=== PATIENT | female | born 1950 | race Caucasian/White ===

== ENCOUNTER 2017-08-06 14:12 | Inpatient (IN) | payer MEDICARE ==
[~2017-08-06] VITALS: Ht 177.8 cm; Wt 95.7 kg
[2017-08-06] VITALS (9 sets, daily range): BP systolic 110–184; BP diastolic 68–87; PULSE 71–85; RESP 17–20; TEMP 98–99.3; O2SAT 95–99
[~2017-08-06 14:12] MED LIST: LEVO25TA4 PO; LISI40TA PO; MOBI15TA PO
[2017-08-06] MEDS ORDERED: ACETAMINOPHEN 325 MG TAB PO ONE (14:30)
[2017-08-06] MEDS ORDERED: SODIUM CHLORID 0.9% 500 ML INJ 500 ML IV ONE (14:30)
[2017-08-06] MEDS ORDERED: SODIUM CHLORIDE 0.9% FLUSH 10 ML FLUSH IVF PRN (14:30)
[2017-08-06 15:04] LABS: AUTOMATED NEUTROPHIL # 3.1 TH/MM3 (1.8-7.7); BASOPHIL # 0.1 TH/MM3 (0-0.2); BASOPHIL % 1.2 % (0.0-2.0); EOSINOPHIL # 0.2 TH/MM3 (0-0.4); EOSINOPHIL % 3.8 % (0.0-4.0); HEMOGLOBIN 12.8 GM/DL (11.6-15.3); LYMPH % 33.1 % (9.0-44.0); LYMPHOCYTE # 1.9 TH/MM3 (1.0-4.8); MEAN CELL VOLUME 88.6 FL (80.0-100.0); MEAN CORPUSCULAR HEMOGLOBIN 29.9 PG (27.0-34.0); MEAN CORPUSCULAR HGB CONC 33.7 % (32.0-36.0); MEAN PLATELET VOLUME 8.9 FL (7.0-11.0); MONOCYTE # 0.5 TH/MM3 (0-0.9); NEUT % 52.9 % (16.0-70.0); PLATELET COUNT 227 TH/MM3 (150-450); RED BLOOD COUNT 4.29 MIL/MM3 (4.00-5.30); RED CELL DISTRIBUTION WIDTH 14.3 % (11.6-17.2); WHITE BLOOD COUNT 5.9 TH/MM3 (4.0-11.0)
[2017-08-06 15:21] LABS: ALBUMIN 3.5 GM/DL (3.4-5.0); ALT (GPT) 36 U/L (10-53); AST (GOT) 28 U/L (15-37); BICARBONATE 29.6 MEQ/L (21.0-32.0); BLOOD UREA NITROGEN 18 MG/DL (7-18); CALCIUM 8.4 MG/DL (8.5-10.1); CHLORIDE 104 MEQ/L (98-107); CREATININE 0.69 MG/DL (0.50-1.00); GLOMERULAR FILTRATION RATE 85 ML/MIN (>89); GLUCOSE,RANDOM 98 MG/DL (74-106); SODIUM (NA) 139 MEQ/L (136-145)
[2017-08-06 15:25] LABS: ALKALINE PHOSPHATASE 74 U/L (45-117); TOTAL BILIRUBIN ADULT 0.4 MG/DL (0.2-1.0); TROPONIN I LESS THAN 0.02 NG/ML (0.02-0.05)
[2017-08-06 15:28] LABS: INTERNATIONAL NORMALIZED RATIO 1.1 RATIO; PROTHROMBIN TIME - PATIENT 10.9 SEC (9.8-11.6)
--- NOTE | 2017-08-06 15:28 | RADRPT ---
EXAM DATE/TIME: 08/06/2017 14:56 CORRECTION Corrected on: August 06, 2017; [facility] COMPARISON: No previous studies available for comparison. INDICATIONS : Patient fell and complains of pelvic pain. MEDICAL HISTORY : None. SURGICAL HISTORY : Bilateral hip arthroplasty. ENCOUNTER: Initial ACUITY: 1 day PAIN SCORE: 5/10 LOCATION: pelvis FINDINGS: A single frontal view of the pelvis demonstrates no evidence of fracture. The bony pelvic ring is in tact. Bilateral hip prosthetic devices are in place. No joint dislocation. There is good alignment of the SI joints and pubic symphysis. CONCLUSION: No acute fracture or joint dislocation involving the pelvis. Jean-Claude Pineda MD on August 06, 2017 at 15:26 Board Certified Radiologist. This report was verified electronically. Jean-Claude Pineda MD on August 06, 2017 at 15:29 Board Certified Radiologist. This report was verified electronically.
--- NOTE | 2017-08-06 15:29 | RADRPT ---
EXAM DATE/TIME: 08/06/2017 14:59 [facility] COMPARISON: PELVIS AP ONLY, August 06, 2017, 14:56. INDICATIONS : Patient fell and complains of left hip pain. MEDICAL HISTORY : None. SURGICAL HISTORY : Left hip arthroplasty. Left knee arthroplasty. ENCOUNTER: Initial ACUITY: 1 day PAIN SCORE: 10/10 LOCATION: Left Femur FINDINGS: There is a fracture involving the proximal shaft of the left femur. The left hip prosthesis remains i ntact and in good position. The bony structures of the pelvis are grossly intact. CONCLUSION: Oblique fracture through the proximal shaft of the left femur. Jean-lCaude Pineda MD on August 06, 2017 at 15:27 Board Certified Radiologist. This report was verified electronically.
--- NOTE | 2017-08-06 15:36 | RADRPT ---
EXAM DATE/TIME: 08/06/2017 15:03 [facility] COMPARISON: No previous studies available for comparison. INDICATIONS : Evaluate for pneumonia, pneumothorax, or communicable diseases. MEDICAL HISTORY : None. SURGICAL HISTORY : None. ENCOUNTER: Initial ACUITY: 1 day PAIN SCORE: 0/10 LOCATION: chest FINDINGS: A single view of the chest demonstrates the lungs to be symmetrically aerated without evidence of mas s, infiltrate or effusion. The cardiomediastinal contours are unremarkable. Osseous structures are intact. Right shoulder prosthesis in place. Degenerative changes of the thoracic spine. CONCLUSION: No acute disease. Jean-Claude Pineda MD on August 06, 2017 at 15:33 Board Certified Radiologist. This report was verified electronically.
--- NOTE | 2017-08-06 15:39 | RADRPT ---
EXAM DATE/TIME: 08/06/2017 15:23 [facility] COMPARISON: No previous studies available for comparison. INDICATIONS : Syncopal episode with fall. Head and neck pain. RADIATION DOSE: 56.35 CTDIvol (mGy) MEDICAL HISTORY : Hypertension. SURGICAL HISTORY : Hysterectomy. ENCOUNTER: Initial ACUITY: 1 day PAIN SCALE: 3/10 LOCATION: Bilateral cranial TECHNIQUE: Multiple contiguous axial images were obtained of the head. Using automated exposure control and adj ustment of the mA and/or kV according to patient size, radiation dose was kept as low as reasonably a chievable to obtain optimal diagnostic quality images. DICOM format image data is available electro nically for review and comparison. FINDINGS: CEREBRUM: The ventricles are normal for age. No evidence of midline shift, mass lesion, hemorrhage or acute in farction. No extra-axial fluid collections are seen. POSTERIOR FOSSA: The cerebellum and brainstem are intact. The 4th ventricle is midline. The cerebellopontine angle i s unremarkable. EXTRACRANIAL: The visualized portion of the orbits is intact. SKULL: The calvaria is intact. No evidence of skull fracture. CONCLUSION: Normal examination for a patient of this age. Jean-Claude Pineda MD on August 06, 2017 at 15:36 Board Certified Radiologist. This report was verified electronically.
--- NOTE | 2017-08-06 15:52 | RADRPT ---
EXAM DATE/TIME: 08/06/2017 15:23 [facility] COMPARISON: No previous studies available for comparison. INDICATIONS : Syncopal episode with fall. Head and neck pain. RADIATION DOSE: 35.24 CTDIvol (mGy) MEDICAL HISTORY : Hypertension. SURGICAL HISTORY : Hysterectomy. ENCOUNTER: Initial ACUITY: 1 day PAIN SCALE: 3/10 LOCATION: Bilateral neck TECHNIQUE: Volumetric scanning of the cervical spine was performed. Multiplanar reconstructions in the sagittal, coronal and oblique axial planes were performed. Using automated exposure control and adjustment o f the mA and/or kV according to patient size, radiation dose was kept as low as reasonably achievable to obtain optimal diagnostic quality images. DICOM format image data is available electronically f or review and comparison. FINDINGS: VERTEBRAE: Normal vertebral body height. There is moderate primary degenerative changes involving the mid to low er cervical spine at C4-5, C5-6 and C6-7. There is disc space narrowing at these levels. No acute bon y fracture is demonstrated. ALIGNMENT: No evidence of subluxation. C2-C3: The bony spinal canal is normal in size. No evidence of disc bulge or herniation. The neural forami na are bilaterally patent. Bilateral facet arthritis. C3-C4: The bony spinal canal is normal in size. No evidence of disc bulge or herniation. The neural forami na are bilaterally patent. Bilateral facet arthritis. C4-C5: The bony spinal canal is normal in size. No evidence of disc bulge or herniation. The neural forami na are bilaterally patent. Bilateral facet arthritis. C5-C6: Broad-based bulging with disc osteophyte complex.. The neural foramina are bilaterally patent. Bilat eral facet arthritis. C6-C7: Focal central bulge with disc osteophyte complex. The neural foramina are patent bilaterally. Bilater al facet arthritis. C7-T1: The bony spinal canal is normal in size. No evidence of disc bulge or herniation. The neural forami na are bilaterally patent. CONCLUSION: 1. No acute bony fracture. 2. Primary degenerative changes, disc degeneration disc space narrowing from C4-C7. 3. Bilateral facet arthritis at multiple levels. Jean-Claude Pineda MD on August 06, 2017 at 15:47 Board Certified Radiologist. This report was verified electronically.
[2017-08-06] MEDS ORDERED: CYAN1TAB24 (16:00)
[2017-08-06] MEDS ORDERED: LISI-515 PO (16:00)
[2017-08-06] MEDS ORDERED: MULT1TAB46 (16:00)
[2017-08-06] MEDS ORDERED: BIOTCAP PO (16:00)
[2017-08-06] MEDS ORDERED: CALC1TAB42 PO (16:00)
--- NOTE | 2017-08-06 16:27 | PD ---
HPI Chief Complaint: Syncope/Near-Syncope Time Seen by Provider: 14:15 Travel History International Travel<30 days: No Contact w/Intl Traveler<30days: No Traveled to known affect area: No History of Present Illness HPI Patient is a 66-year-old female history of gastric bypass surgery a little over a year ago, who comes in after a syncopal episode today. She says she was feeling fine, she was entertaining some friends today and she says she was standing up she suddenly got dizzy and passed out. She says the entire event came on very quickly, and this has never happened to her before. She says she never had any chest pain. She says she was see feeling in her normal state of health prior to this event. She denies any shortness of breath, fever, chills. Currently she is complaining of severe left leg pain. She refused any morphine from EMS on the way here. Any movement makes the pain worse. Severity is moderate. PFSH Past Medical History Cancer: No Cardiovascular Problems: No Diabetes: No Patient Takes Glucophage: No Endocrine: No Gastrointestinal Disorders: Yes (GASTRIC BYPASS ) Genitourinary: No Hepatitis: No Hiatal Hernia: No Hypertension: Yes Immune Disorder: No Medical other: Yes (CHOLESTEROL) Musculoskeletal: No Neurologic: No Psychiatric: No Reproductive: No Respiratory: Yes (SLEEP APNEA) Thyroid Disease: Yes ?: Not Past Surgical History AICD: No Gynecologic Surgery: Yes (HYSTERECTOMY) Joint Replacement: Yes (BILATERAL HIPS AND KNEES; RIGHT SHOULDER) Pacemaker: No Other Surgery: Yes Social History Alcohol Use: No Tobacco Use: No Substance Use: No Allergies-Medications (Allergen,Severity, Reaction): Coded Allergies: Sulfa (Sulfonamide Antibiotics) (Unverified Allergy, Mild, Rash, 01/25/17) penicillin G (Unverified Allergy, Mild, Rash, 01/25/17) Reported Meds & Prescriptions Reported Meds & Active Scripts Active Reported Calcium 500+D (Calcium Carbonate-Cholecalciferol) 500-200 Mg-Unit Tab 1 Tab PO BID Biotin 5 Mg Cap 5 Mg PO Multi Vitamin Daily (Multiple Vitamin) 1 Tab Tab BID B12 (Cyanocobalamin) 1,000 Mcg Tab Lisinopril 20 Mg Tab 20 Mg PO DAILY Mobic (Meloxicam) 15 Mg Tab 15 Mg PO DAILY Levothyroxine (Levothyroxine Sodium) 25 Mcg Tab 25 Mcg PO DAILY Review of Systems Except as stated in HPI: all other systems reviewed are Neg General / Constitutional: No: Fever, Chills Eyes: No: Blurred Vision HENT: Positive: Lightheadedness, No: Headaches Cardiovascular: No: Chest Pain or Discomfort Respiratory: No: Shortness of Breath Gastrointestinal: No: Nausea, Vomiting Musculoskeletal: Positive: Limited ROM, Pain Skin: No Rash, No Change in Pigmentation Neurologic: Positive: Dizziness Physical Exam Narrative GENERAL: Awake and alert, no acute distress. SKIN: Focused skin assessment warm/dry. No wounds or signs of infection. HEAD: Atraumatic. Normocephalic. EYES: Pupils equal and round. No scleral icterus. Extraocular movements intact. ENT: Mucous membranes pink and moist. NECK: Trachea midline. No JVD. CARDIOVASCULAR: Regular rate and rhythm. No murmur appreciated. RESPIRATORY: No accessory muscle use. Clear to auscultation. Breath sounds equal bilaterally. GASTROINTESTINAL: Abdomen soft, non-tender, nondistended. MUSCULOSKELETAL: Deformity and swelling of the left thigh. Unable to move the left leg due to pain. No tenderness to the pelvis, knee, lower leg. Pedal pulses intact. NEUROLOGICAL: Awake and alert. No obvious cranial nerve deficits. Motor grossly within normal limits. Normal speech. PSYCHIATRIC: Appropriate mood and affect; insight and judgment normal. Data Data Last Documented VS Vital Signs Date Time Temp Pulse Resp B/P (MAP) Pulse Ox O2 Delivery O2 Flow Rate FiO2 08/06/17 15:41 74 148/85 (106) 97 Room Air 08/06/17 14:18 20 08/06/17 14:15 98.0 Orders Orders Complete Blood Count With Diff (08/06/17 14:23) Comprehensive Metabolic Panel (08/06/17 14:23) Ckmb (Isoenzyme) Profile (08/06/17 14:23) Troponin I (08/06/17 14:23) Act Partial Throm Time (Ptt) (08/06/17 14:23) Prothrombin Time / Inr (Pt) (08/06/17 14:23) Urinalysis - C+S If Indicated (08/06/17 14:23) Chest, Single Ap (08/06/17 14:23) Ct Brain W/O Iv Contrast(Rout) (08/06/17 14:23) Ct Cerv Spine W/O Contrast (08/06/17 14:23) Ecg Monitoring (08/06/17 14:23) Iv Access Insert/Monitor (08/06/17 14:23) Oximetry (08/06/17 14:23) Sodium Chloride 0.9% Flush (Ns Flush) (08/06/17 14:30) Pelvis, Ap Only (Routine) (08/06/17 ) Femur (Ap & Lat/2vws) (08/06/17 ) Acetaminophen (Tylenol) (08/06/17 14:30) Sodium Chlorid 0.9% 500 Ml Inj (Ns 500 M (08/06/17 14:30) Electrocardiogram (08/06/17 ) Morphine Inj (Morphine Inj) (08/06/17 16:30) Labs Laboratory Tests Test 08/06/17 14:35 White Blood Count 5.9 TH/MM3 Red Blood Count 4.29 MIL/MM3 Hemoglobin 12.8 GM/DL Hematocrit 38.0 % Mean Corpuscular Volume 88.6 FL Mean Corpuscular Hemoglobin 29.9 PG Mean Corpuscular Hemoglobin Concent 33.7 % Red Cell Distribution Width 14.3 % Platelet Count 227 TH/MM3 Mean Platelet Volume 8.9 FL Neutrophils (%) (Auto) 52.9 % Lymphocytes (%) (Auto) 33.1 % Monocytes (%) (Auto) 9.0 % Eosinophils (%) (Auto) 3.8 % Basophils (%) (Auto) 1.2 % Neutrophils # (Auto) 3.1 TH/MM3 Lymphocytes # (Auto) 1.9 TH/MM3 Monocytes # (Auto) 0.5 TH/MM3 Eosinophils # (Auto) 0.2 TH/MM3 Basophils # (Auto) 0.1 TH/MM3 CBC Comment DIFF FINAL Differential Comment Prothrombin Time 10.9 SEC Prothromb Time International Ratio 1.1 RATIO Activated Partial Thromboplast Time 24.5 SEC Blood Urea Nitrogen 18 MG/DL Creatinine 0.69 MG/DL Random Glucose 98 MG/DL Total Protein 7.0 GM/DL Albumin 3.5 GM/DL Calcium Level 8.4 MG/DL Alkaline Phosphatase 74 U/L Aspartate Amino Transf (AST/SGOT) 28 U/L Alanine Aminotransferase (ALT/SGPT) 36 U/L Total Bilirubin 0.4 MG/DL Sodium Level 139 MEQ/L Potassium Level 3.6 MEQ/L Chloride Level 104 MEQ/L Carbon Dioxide Level 29.6 MEQ/L Anion Gap 5 MEQ/L Estimat Glomerular Filtration Rate 85 ML/MIN Total Creatine Kinase 97 U/L Troponin I LESS THAN 0.02 NG/ML MDM Medical Decision Making Medical Screen Exam Complete: Yes Emergency Medical Condition: Yes Interpretation(s) ECG shows normal sinus rhythm at 68, no ST elevation or depression, incomplete right bundle branch block. Differential Diagnosis ACS versus dehydration versus femur fracture versus pelvic fracture Narrative Course Patient is a 66-year-old female who comes in after syncopal episode complaining of left leg pain. Exam shows deformity of the left thigh. There are no neurologic abnormalities. IV established, labs sent. Labs show no acute abnormalities. CT head and C-spine performed show no acute abnormalities. X- ray of the femur shows a fracture. Last [address] 08/06/17 1423 Signed Impressions: Service Date/Time: Sunday, August 06, 2017 15:23 - CONCLUSION: Normal examination for a patient of this age. Jean-Claude Pineda MD Chest X-Ray 08/06/17 1423 Signed Impressions: Service Date/Time: Sunday, August 06, 2017 15:03 - CONCLUSION: No acute disease. Jean-Claude Pineda MD Cervical Spine CT 08/06/17 1423 Signed Impressions: Service Date/Time: Sunday, August 06, 2017 15:23 - CONCLUSION: 1. No acute bony fracture. 2. Primary degenerative changes, disc degeneration disc space narrowing from C4-C7. 3. Bilateral facet arthritis at multiple levels. Jean-Claude Pineda MD Pelvis X-Ray 08/06/17 0000 Signed Impressions: Service Date/Time: Sunday, August 06, 2017 14:56 - CONCLUSION: No acute fracture or joint dislocation involving the pelvis. Jean-Claude Pineda MD Femur X-Ray 08/06/17 0000 Signed Impressions: Service Date/Time: Sunday, August 06, 2017 14:59 - CONCLUSION: Oblique fracture through the proximal shaft of the left femur. Jean-Claude Pineda MD At first, patient was refusing any pain medicine. After x-ray, she agreed to take some pain medicine. She is given morphine. She will be admitted for further management of the syncopal episode as well as her femur fracture. Diagnosis Primary Impression: Syncope Qualified Codes: R55 - Syncope and collapse Additional Impression: Femur fracture, left Qualified Codes: S72.335A - Nondisplaced oblique fracture of shaft of left femur, initial encounter for closed fracture Admitting Information Admitting Physician Requests: it Georgia Fajardo MD Aug 06, 2017 16:27
[2017-08-06] MEDS ORDERED: NALOXONE HCL 0.4 MG/ML AMP IV PUSH PRN (16:30)
[2017-08-06] MEDS ORDERED: MORPHINE SULFATE 4 MG/ML INJ IV PUSH ONE (16:30)
[2017-08-06] MEDS ORDERED: SODIUM CHLORIDE 0.9% FLUSH 10 ML FLUSH IV FLUSH PRN (16:30)
[2017-08-06] MEDS ORDERED: ONDANSETRON HCL 4 MG/2 ML VIAL IVP PRN (16:30)
--- NOTE | 2017-08-06 17:06 | EKG ---
Date Performed: 08/06/2017 Time Performed: 14:24:09 PTAGE: 66 years EKG: Sinus rhythm BORDERLINE LEFT AXIS DEVIATION BORDERLINE ECG PREVIOUS TRACING : 02/13/2016 08.35 Compared to previous tracing, minimal voltage criteria for LVH is no longer present. DOCTOR: Fritz Mascorro Interpretating Date/Time 08/06/2017 17:05:05
[2017-08-06] MEDS: SODIUM CHLOR 0.45% 1000 ML INJ 1,000 ML IV SCH ×2 (17:10→19:43)
--- NOTE | 2017-08-06 17:31 | HHI.HP ---
[facility] Beth Tracy MD Admission Diagnosis syncope, femur fracture Diagnoses: Chief Complaint: Syncope Travel History International Travel<30 Days: No Contact w/Intl Traveler <30 Da: No Traveled to Known Affected Are: No History of Present Illness This is a 66-year-old female past medical history of gastric bypass surgery, hypertension who presented with a syncopal episode. Patient stated that she just moved here and was showing her friends a clubhouse. She states she is pointing to the board and felt very dizzy and passed out. Patient stated that her friend stated that she passed out for a few seconds. Denies any seizure- like activity or incontinence. Patient denies any chest pain, palpitation, or shortness of breathing during this episode. She stated that she ate throughout the day but may have been dehydrated. Patient stated and october in November she did have dizziness in which her PCP decrease her blood pressure medication. Patient described the dizziness more as lightheadedness as wanting to pass out. She is asymptomatic at the moment. Patient denies any focal neurological deficits, visual changes, or headache. She does admit to left hip pain. She also stated that left hip does not move much because of pain and now feels pins and needles. All other review systems reviewed and negative. Past Family Social History Past Medical History Osteoarthritis Prediabetes that resolved after gastric bypass surgery Hypertension Past Surgical History Bilateral total hip replacement Bilateral total knee replacement Left shoulder replacement Tonsillectomy Gastric bypass Total hysterectomy Reported Medications Calcium 500+D (Calcium Carbonate-Cholecalciferol) 500-200 Mg-Unit Tab 1 Tab PO BID Biotin 5 Mg Cap 5 Mg PO Multi Vitamin Daily (Multiple Vitamin) 1 Tab Tab BID B12 (Cyanocobalamin) 1,000 Mcg Tab Lisinopril 20 Mg Tab 20 Mg PO DAILY Mobic (Meloxicam) 15 Mg Tab 15 Mg PO DAILY Levothyroxine (Levothyroxine Sodium) 25 Mcg Tab 25 Mcg PO DAILY Allergies: Coded Allergies: Sulfa (Sulfonamide Antibiotics) (Unverified Allergy, Mild, Rash, 01/25/17) penicillin G (Unverified Allergy, Mild, Rash, 01/25/17) Active Ordered Medications Current Medications Sodium Chloride (NS Flush) 2 ml UNSCH PRN IVF FLUSH AFTER USING IV ACCESS Last administered on 08/06/17at 14:45; Start 08/06/17 at 14:30 Acetaminophen (Tylenol) 650 mg ONCE ONCE PO Last administered on 08/06/17at 14: 45; Start 08/06/17 at 14:30; Stop 08/06/17 at 14:31; Status DC Sodium Chloride 500 ml @ 500 mls/hr BOLUS ONCE IV Last administered on at 14:44; Start 08/06/17 at 14:30; Stop 08/06/17 at 15:29; Status DC Morphine Sulfate (Morphine Inj) 4 mg ONCE ONCE IV PUSH Last administered on at 16:56; Start 08/06/17 at 16:30; Stop 08/06/17 at 16:31; Status DC Sodium Chloride 1,000 ml @ 75 mls/hr [id number] IV Last administered on at 17:10; Start 08/06/17 at 16:28 Sodium Chloride (NS Flush) 2 ml UNSCH PRN IV FLUSH FLUSH AFTER USING IV ACCESS ; Start 08/06/17 at 16:30 Sodium Chloride (NS Flush) 2 ml BID IV FLUSH ; Start 08/06/17 at 21:00 Acetaminophen (Tylenol) 650 mg Q4H PRN PO TEMP > 100.4; Start 08/06/17 at 16:30 Ondansetron HCl (Zofran Inj) 4 mg Q6H PRN IVP NAUSEA OR VOMITING; Start at 16:30 Naloxone HCl (Narcan Inj) 0.4 mg UNSCH PRN IV PUSH SEE LABEL COMMENTS; Start at 16:30 Magnesium Hydroxide (Milk Of Magnesia Liq) 30 ml Q12H PRN PO Mild constipation ; Start 08/06/17 at 16:30 Levothyroxine Sodium (Synthroid) 25 mcg DAILY@0600 PO ; Start 08/07/17 at 06:00 Lisinopril (Prinivil) 20 mg DAILY PO ; Start 08/07/17 at 09:00 Calcium/Vitamin D (Oscal-D 250-125) 250 mg BID PO ; Start 08/06/17 at 21:00 Family History Sisters had breast cancer and ovarian cancer. Social History Denied any tobacco, alcohol, or illicit drug use. Patient is retired and moved down to [place]. Physical Exam Vital Signs Vital Signs Date Time Temp Pulse Resp B/P (MAP) Pulse Ox O2 Delivery O2 Flow Rate FiO2 08/06/17 15:41 74 148/85 (106) 97 Room Air 08/06/17 14:18 20 135/84 (101) 99 08/06/17 14:15 98.0 19 135/84 (101) Physical Exam GENERAL: This is a well-nourished, well-developed patient, in no apparent distress. SKIN: No rashes, ecchymoses or lesions. Cool and dry. HEAD: Atraumatic. Normocephalic. No temporal or scalp tenderness. EYES: Pupils equal round and reactive. Extraocular motions intact. No scleral icterus. No injection or drainage. ENT: Nose without bleeding, purulent drainage or septal hematoma. Throat without erythema, tonsillar hypertrophy or exudate. Uvula midline. Airway patent. NECK: Trachea midline. No JVD or lymphadenopathy. Supple, nontender, no meningeal signs. CARDIOVASCULAR: Regular rate and rhythm without murmurs, gallops, or rubs. RESPIRATORY: Clear to auscultation. Breath sounds equal bilaterally. No wheezes , rales, or rhonchi. GASTROINTESTINAL: Abdomen soft, non-tender, nondistended. No hepato-splenomegaly , or palpable masses. No guarding. MUSCULOSKELETAL: Extremities without clubbing, cyanosis, or edema. Left leg decreased range of motion secondary to pain. Sensation is intact. Positive to DP pulses. Able to wiggle her left toes. Right lower extremity intact. NEUROLOGICAL: Awake and alert. Cranial nerves II through XII intact. Motor and sensory grossly within normal limits. Five out of 5 muscle strength in all muscle groups. Normal speech. Laboratory Laboratory Tests Test 08/06/17 14:35 White Blood Count 5.9 Red Blood Count 4.29 Hemoglobin 12.8 Hematocrit 38.0 Mean Corpuscular Volume 88.6 Mean Corpuscular Hemoglobin 29.9 Mean Corpuscular Hemoglobin Concent 33.7 Red Cell Distribution Width 14.3 Platelet Count 227 Mean Platelet Volume 8.9 Neutrophils (%) (Auto) 52.9 Lymphocytes (%) (Auto) 33.1 Monocytes (%) (Auto) 9.0 Eosinophils (%) (Auto) 3.8 Basophils (%) (Auto) 1.2 Neutrophils # (Auto) 3.1 Lymphocytes # (Auto) 1.9 Monocytes # (Auto) 0.5 Eosinophils # (Auto) 0.2 Basophils # (Auto) 0.1 CBC Comment DIFF FINAL Differential Comment Prothrombin Time 10.9 Prothromb Time International Ratio 1.1 Activated Partial Thromboplast Time 24.5 Blood Urea Nitrogen 18 Creatinine 0.69 Random Glucose 98 Total Protein 7.0 Albumin 3.5 Calcium Level 8.4 Alkaline Phosphatase 74 Aspartate Amino Transf (AST/SGOT) 28 Alanine Aminotransferase (ALT/SGPT) 36 Total Bilirubin 0.4 Sodium Level 139 Potassium Level 3.6 Chloride Level 104 Carbon Dioxide Level 29.6 Anion Gap 5 Estimat Glomerular Filtration Rate 85 Total Creatine Kinase 97 Troponin I LESS THAN 0.02 Result Diagram: 08/06/17 1435 08/06/17 1435 Imaging Last Impressions Head CT 08/06/17 142 Signed Impressions: Service Date/Time: Sunday, August 06, 2017 15:23 - CONCLUSION: Normal examination for a patient of this age. Jean-Claude Pineda MD Chest X-Ray 08/06/17 142 Signed Impressions: Service Date/Time: Sunday, August 06, 2017 15:03 - CONCLUSION: No acute disease. Jean-Claude Pineda MD Cervical Spine CT 08/06/17 142 Signed Impressions: Service Date/Time: Sunday, August 06, 2017 15:23 - CONCLUSION: 1. No acute bony fracture. 2. Primary degenerative changes, disc degeneration disc space narrowing from C4-C7. 3. Bilateral facet arthritis at multiple levels. Jean-Claude Pineda MD Pelvis X-Ray 08/06/17 0000 Signed Impressions: Service Date/Time: Sunday, August 06, 2017 14:56 - CONCLUSION: No acute fracture or joint dislocation involving the pelvis. Jean-Claude Pineda MD Femur X-Ray 08/06/17 0000 Signed Impressions: Service Date/Time: Sunday, August 06, 2017 14:59 - CONCLUSION: Oblique fracture through the proximal shaft of the left femur. MD Franca Sheehan VTE Risk Assessment Shamarrinbritany VTE Risk Assessment: Mod/High Risk (score >= 2) Caprini Risk Assessment Model Point Value = 1 Point Value = 2 Point Value = 3 Point Value = 5 Age 41-60 Minor surgery BMI > 25 kg/m2 Swollen legs Varicose veins or History of unexplained or recurrent spontaneous Oral contraceptives or hormone replacement Sepsis (< 1 month) Serious lung disease, including pneumonia (< 1 month) Abnormal pulmonary function Acute myocardial infarction Congestive heart failure (< 1 month) History of inflammatory bowel disease Medical patient at bed rest Age 61-74 Arthroscopic surgery Major open surgery (> 45 min) Laparoscopic surgery (> 45 min) Malignancy Confined to bed (> 72 hours) Immobilizing plaster cast Central venous access Age >= 75 History of VTE Family history of VTE Factor V Leiden Prothrombin [id number] Lupus anticoagulant Anticardiolipin antibodies Elevated serum homocysteine Heparin-induced thrombocytopenia Other congenital or acquired thrombophilia Stroke (< 1 month) Elective arthroplasty Hip, pelvis, or leg fracture Acute spinal cord injury (< 1 month) Prophylaxis Regimen Total Risk Factor Score Risk Level Prophylaxis Regimen 0-1 Low Early ambulation 2 Moderate Order ONE of the following: *Sequential Compression Device (SCD) *Heparin 5000 units SQ BID 3-4 Higher Order ONE of the following medications: *Heparin 5000 units SQ TID *Enoxaparin/Lovenox 40 mg SQ daily (WT < 150 kg, CrCl > 30 mL/min) *Enoxaparin/Lovenox 30 mg SQ daily (WT < 150 kg, CrCl > 10-29 mL/min) *Enoxaparin/Lovenox 30 mg SQ BID (WT < 150 kg, CrCl > 30 mL/min) AND/OR *Sequential Compression Device (SCD) 5 or more Highest Order ONE of the following medications: *Heparin 5000 units SQ TID (Preferred with Epidurals) *Enoxaparin/Lovenox 40 mg SQ daily (WT < 150 kg, CrCl > 30 mL/min) *Enoxaparin/Lovenox 30 mg SQ daily (WT < 150 kg, CrCl > 10-29 mL/min) *Enoxaparin/Lovenox 30 mg SQ BID (WT < 150 kg, CrCl > 30 mL/min) AND *Sequential Compression Device (SCD) Assessment and Plan Assessment and Plan This is a 66-year-old female presented with a syncopal episode and left hip pain after fall Syncope -Most likely vasovagal. Labs reviewed negative. Troponin negative. EKG not impressive. will rule out cardiac etiology. We trend troponin, monitor on telemetry, trend EKGs, 2D echo, carotid ultrasound. Left hip fracture -Noted on x-ray. ED provider spoke to Dr. Nichole. Will place consult. -Pain control. Hypertension/status post gastric bypass surgery/OA -Resume home medication. DVT prophylaxis -Heparin Code Status full Discussed Condition With Patient and her at the bedside. Physician Certification 2 Midnight Certification Type: Admission for Inpatient Services Order for Inpatient Services The services are ordered in accordance with Medicare regulations or non- Medicare payer requirements, as applicable. In the case of services not specified as inpatient-only, they are appropriately provided as inpatient services in accordance with the 2-midnight benchmark. Estimated LOS (days): 3 3 days is the estimated time the patient will need to remain in the hospital, assuming treatment plan goals are met and no additional complications. Post-Hospital Plan: [facility] Bruna Morel MD Aug 06, 2017 17:31
[2017-08-06] MEDS ORDERED: ACETAMINOPHEN/HYDROcodone 325 MG/5 MG TAB PO PRN (17:45)
--- NOTE | 2017-08-06 19:24 | RADRPT ---
EXAM DATE/TIME: 08/06/2017 18:47 [facility] COMPARISON: No previous studies available for comparison. INDICATIONS : Syncope. MEDICAL HISTORY : Hypertension. Hypercholesterolemia. Thyroid disease. Sleep apnea. SURGICAL HISTORY : Hysterectomy. Gastric bypass. Bilateral knee replacement. Bilateral hip replacement. Right should er surgery. ENCOUNTER: Initial ACUITY: 1 day PAIN SCORE: 0/10 LOCATION: Bilateral neck PEAK SYSTOLIC VELOCITIES (cm/sec): ICA/CCA RATIO: Right: 0.7 Left: 0.9 ICA: Right: 44.9 Left: 59.4 CCA: Right: 65.8 Left: 69.8 ECA: Right: 57.0 Left: 73.7 VERTEBRAL: Right: 27.0 antegrade Left: 39.4 antegrade Elevated flow velocities and ICA/CCA ratios have been found to correlate with increased degrees of vessel stenosis, calculated as percentage of diameter relative to a normal segment of distal ICA/CCA FINDINGS: RIGHT CAROTID: No significant stenosis is visualized. There is minimal calcified and noncalcified plaque in the granger tid bulb. The waveforms are within normal limits. LEFT CAROTID: No significant stenosis is visualized. No significant atherosclerotic plaque is visualized. The wave forms are within normal limits. VERTEBRAL ARTERIES: Antegrade flow is seen in both vertebral arteries. MISCELLANEOUS: None. CONCLUSION: 1. No significant atherosclerotic disease or stenosis is identified within either internal carotid ar rubén. 2. There is antegrade flow in both vertebral arteries. Aaron Cardenas MD on August 06, 2017 at 19:22 Board Certified Radiologist. This report was verified electronically.
[2017-08-06] MEDS: MAGNESIUM HYDROXIDE SUSP 30 ML CUP PO PRN (19:41)
[2017-08-06] MEDS: CALCIUM/VITAMIN D 250 MG/125 U TAB PO SCH (19:41)
[2017-08-06] MEDS: ACETAMINOPHEN/HYDROcodone 325 MG/5 MG TAB PO PRN ×2 (19:41→23:46)
[2017-08-06] MEDS: HEPARIN SODIUM - SQ 10,000 UNITS/ML VIAL SQ SCH ×2 (19:42→19:44)
[2017-08-06] MEDS: SODIUM CHLORIDE 0.9% FLUSH 10 ML FLUSH IV FLUSH SCH (19:42)
[2017-08-06 20:01] LABS: BILIRUBIN, URINE NEG (NEG); BLOOD, URINE NEG (NEG); GLUCOSE,URINE NEG (NEG); KETONE, URINE TRACE mg/dL (NEG); MUCUS URINE FEW /lpf (OCC); NITRITE,URINE NEG (NEG); PH, URINE 6.5 (5.0-8.5); SQUAMOUS EPITHELIAL CELL URINE 1 /hpf (0-5); URINE COLOR LIGHT-YELLOW (YELLW/STRAW); URINE LEUKOCYTE ESTERASE TRACE (NEG)
[2017-08-07] VITALS (9 sets, daily range): BP systolic 101–119; BP diastolic 56–77; PULSE 67–106; RESP 18–20; TEMP 96.5–97.7; O2SAT 95–100
[2017-08-07] MEDS ORDERED: LACTATED RINGER'S 1000 ML IV PRN (03:45)
[2017-08-07] MEDS ORDERED: METOPROLOL TARTRATE 25 MG TAB PO PRN (03:45)
[2017-08-07] MEDS ORDERED: POVIDONE IODINE 5% (ANTISEPSIS KIT) 4 APPLICATIONS EACH NARE PRN (03:45)
[2017-08-07] MEDS ORDERED: CHLORHEXIDINE GLUCONATE 2 % 1 PACK (2 CLOTHS) TOPICAL PRN (03:45)
--- NOTE | 2017-08-07 05:25 | PD.CONS ---
cc: Franco Nichole MD HPI Service Orthopedic Surgeons Consult Requested By ER staff Reason for Consult Evaluation of left periprosthetic proximal femur fracture Primary Care Physician Beth Tracy MD Admission Diagnosis syncope, femur fracture Diagnoses: Chief Complaint: Left hip and leg pain History of Present Illness This is a 66-year-old female past medical history of gastric bypass surgery, hypertension who presented with a syncopal episode. She has lost 170 pounds and is quite active. Patient stated that she just moved here and was showing her friends a clubhouse. She states she is pointing to the board and felt very dizzy and passed out. Patient stated that her friend stated that she passed out for a few seconds. Denies any seizure-like activity or incontinence. Patient denies any chest pain, palpitation, or shortness of breathing during this episode. She stated that she ate throughout the day but may have been dehydrated. Patient stated in November she did have dizziness in which her PCP decrease her blood pressure medication. Patient described the dizziness more as lightheadedness as wanting to pass out. She is asymptomatic at the moment. Patient denies any focal neurological deficits, visual changes, or headache. The patient is status post bilateral total hip and total knee arthroplasties and a right total shoulder arthroplasty. These were completed in [place]. Her left total hip was approximately [address] Gambino. It was a Rory product. Review of Systems Reviewed and well outlined in the medical record Past Family Social History Past Medical History Osteoarthritis Prediabetes that resolved after gastric bypass surgery Hypertension Past Surgical History Bilateral total hip replacement Bilateral total knee replacement Left shoulder replacement Tonsillectomy Gastric bypass Total hysterectomy Allergies: Coded Allergies: Sulfa (Sulfonamide Antibiotics) (Unverified Allergy, Mild, Rash, 01/25/17) penicillin G (Unverified Allergy, Mild, Rash, 01/25/17) Active Ordered Medications Current Medications Medications (Trade) Dose Ordered Sig/Shubham Route Start Time Stop Time Status Last Admin (NS Flush) 2 ml UNSCH PRN IVF 08/06/17 14:30 08/06/17 14:45 Sodium Chloride 1,000 ml @ 75 mls/hr [id number] IV 08/06/17 16:28 08/06/17 19:43 (NS Flush) 2 ml UNSCH PRN IV FLUSH 08/06/17 16:30 (NS Flush) 2 ml BID IV FLUSH 08/06/17 21:00 08/06/17 19:42 (Tylenol) 650 mg Q4H PRN PO 08/06/17 16:30 (Zofran Inj) 4 mg Q6H PRN IVP 08/06/17 16:30 (Narcan Inj) 0.4 mg UNSCH PRN IV PUSH 08/06/17 16:30 (Milk Of Allan Liq) 30 ml Q12H PRN PO 08/06/17 16:30 08/06/17 19:41 (Synthroid) 25 mcg DAILY@0600 PO 08/07/17 06:00 (Prinivil) 20 mg DAILY PO 08/07/17 09:00 (Oscal-D 250-125) 250 mg BID PO 08/06/17 21:00 08/06/17 19:41 (Heparin Inj) 5,000 units Q8HR SQ 08/06/17 22:00 (Saxon 5-325 Mg) 1 tab Q4H PRN PO 08/06/17 17:45 (Saxon 5-325 Mg) 2 tab Q4H PRN PO 08/06/17 17:45 08/06/17 23:46 Lactated Ringer's 1,000 ml @ 30 mls/hr Q24H PRN IV 08/07/17 03:45 08/10/17 03:44 (Lopressor) 25 mg [employer] PRN PO 08/07/17 03:45 08/10/17 03:44 (Betadine 5% Antisepsis Kit) 1 applic [employer] PRN EACH NARE 08/07/17 03:45 08/10/17 03:44 (Chlorhexidine 2% Cloth) 3 pack [employer] PRN TOPICAL 08/07/17 03:45 08/10/17 03:44 Reported Meds & Active Scripts Active Reported Calcium 500+D (Calcium Carbonate-Cholecalciferol) 500-200 Mg-Unit Tab 1 Tab PO BID Biotin 5 Mg Cap 5 Mg PO Multi Vitamin Daily (Multiple Vitamin) 1 Tab Tab BID B12 (Cyanocobalamin) 1,000 Mcg Tab Lisinopril 20 Mg Tab 20 Mg PO DAILY Mobic (Meloxicam) 15 Mg Tab 15 Mg PO DAILY Levothyroxine (Levothyroxine Sodium) 25 Mcg Tab 25 Mcg PO DAILY Family History Sisters had breast cancer and ovarian cancer. Social History Denied any tobacco, alcohol, or illicit drug use. Patient is retired and moved down to [place]. Physical Exam Vital Signs Vital Signs Date Time Temp Pulse Resp B/P (MAP) Pulse Ox O2 Delivery O2 Flow Rate FiO2 08/07/17 04:00 97.7 70 20 106/63 (77) 97 08/07/17 03:48 67 08/06/17 23:58 99.0 71 20 110/68 (82) 97 08/06/17 23:51 80 08/06/17 20:53 85 08/06/17 20:00 99.3 78 20 151/87 (108) 98 08/06/17 18:26 98.8 83 17 142/74 (96) 95 08/06/17 17:53 184/75 (111) 100 08/06/17 15:41 74 148/85 (106) 97 Room Air 08/06/17 14:18 20 135/84 (101) 99 08/06/17 14:15 98.0 19 135/84 (101) Physical Exam The patient is awake and alert and answers questions appropriately. Her pain is well-controlled. Her left lower extremity is minimally shortened. Is not significant rotated. There is pain with attempts at motion. She moves her ankle freely and has good capillary refill and sensation. She has no calf discomfort and a negative Homans sign. She has a well-healed surgical incision over the anterior aspect. Laboratory Laboratory Tests Test 08/06/17 14:35 08/06/17 18:55 White Blood Count 5.9 Red Blood Count 4.29 Hemoglobin 12.8 Hematocrit 38.0 Mean Corpuscular Volume 88.6 Mean Corpuscular Hemoglobin 29.9 Mean Corpuscular Hemoglobin Concent 33.7 Red Cell Distribution Width 14.3 Platelet Count 227 Mean Platelet Volume 8.9 Neutrophils (%) (Auto) 52.9 Lymphocytes (%) (Auto) 33.1 Monocytes (%) (Auto) 9.0 Eosinophils (%) (Auto) 3.8 Basophils (%) (Auto) 1.2 Neutrophils # (Auto) 3.1 Lymphocytes # (Auto) 1.9 Monocytes # (Auto) 0.5 Eosinophils # (Auto) 0.2 Basophils # (Auto) 0.1 CBC Comment DIFF FINAL Differential Comment Prothrombin Time 10.9 Prothromb Time International Ratio 1.1 Activated Partial Thromboplast Time 24.5 Blood Urea Nitrogen 18 Creatinine 0.69 Random Glucose 98 Total Protein 7.0 Albumin 3.5 Calcium Level 8.4 Alkaline Phosphatase 74 Aspartate Amino Transf (AST/SGOT) 28 Alanine Aminotransferase (ALT/SGPT) 36 Total Bilirubin 0.4 Sodium Level 139 Potassium Level 3.6 Chloride Level 104 Carbon Dioxide Level 29.6 Anion Gap 5 Estimat Glomerular Filtration Rate 85 Total Creatine Kinase 97 Troponin I LESS THAN 0.02 Urine Color LIGHT-YELLOW Urine Turbidity CLEAR Urine pH 6.5 Urine Specific [place] 1.011 Urine Protein NEG Urine Glucose (UA) NEG Urine Ketones TRACE Urine Occult Blood NEG Urine Nitrite NEG Urine Bilirubin NEG Urine Urobilinogen LESS THAN 2.0 Urine Leukocyte Esterase TRACE Urine WBC LESS THAN 1 Urine Squamous Epithelial Cells 1 Urine Mucus FEW Microscopic Urinalysis Comment CULT NOT INDICATED Result Diagram: 08/06/17 1435 08/06/17 1435 Imaging Last [address] 08/06/17 1423 Signed Impressions: Service Date/Time: Sunday, August 06, 2017 15:23 - CONCLUSION: Normal examination for a patient of this age. Jean-Claude Pineda MD Chest X-Ray 08/06/17 1423 Signed Impressions: Service Date/Time: Sunday, August 06, 2017 15:03 - CONCLUSION: No acute disease. Jean-Claude Pineda MD Cervical Spine CT 08/06/17 1423 Signed Impressions: Service Date/Time: Sunday, August 06, 2017 15:23 - CONCLUSION: 1. No acute bony fracture. 2. Primary degenerative changes, disc degeneration disc space narrowing from C4-C7. 3. Bilateral facet arthritis at multiple levels. Jean-Claude Pineda MD Pelvis X-Ray 08/06/17 0000 Signed Impressions: Service Date/Time: Sunday, August 06, 2017 14:56 - CONCLUSION: No acute fracture or joint dislocation involving the pelvis. Jean-Claude Pineda MD Femur X-Ray 08/06/17 0000 Signed Impressions: Service Date/Time: Sunday, August 06, 2017 14:59 - CONCLUSION: Oblique fracture through the proximal shaft of the left femur. Jean-Claude Pineda MD Carotid Artery Ultrasound 08/06/17 0000 Signed Impressions: Service Date/Time: Sunday, August 06, 2017 18:47 - CONCLUSION: 1. No significant atherosclerotic disease or stenosis is identified within either internal carotid artery. 2. There is antegrade flow in both vertebral arteries. Aaron aCrdenas MD Assessment & Plan Problem List: (1) Periprosthetic fracture around internal prosthetic left hip joint ICD Codes: M97.02XA - Periprosthetic fracture around internal prosthetic left hip joint, initial encounter (2) Syncope ICD Codes: R55 - Syncope and collapse Status: Acute Qualifiers: Qualified Codes: R55 - Syncope and collapse Assessment and Plan The findings and alternatives of the treatment were discussed. Review of the x- rays suggest that the lateral femoral cortex is intact. In addition the femoral prosthesis appears to be ingrown to the lateral aspect. The acetabular component is in good position and does not appear loose. The options for treatment were discussed. Recommendations are for internal fixation of the periprosthetic fracture. The possibility of requiring revision surgery was discussed. This would be done today only if there was obvious instability of the femoral stem. The possibility requiring a staged procedure was discussed if the fracture heals and she has persistent pain and or obvious loosening of the prosthesis. The nature of the procedure, the risks, the expected benefits, as well as the post operative expectations have been discussed with her in detail. In addition, the alternatives to treatment and risks of same were discussed. The patient acknowledges full understanding and consents to it. Franco Nichole MD Aug 07, 2017 05:25
[2017-08-07] MEDS ORDERED: ceFAZolin 2 GM PREMIX 50 ML IV SCH (05:30)
[2017-08-07] MEDS ORDERED: VANCOMYCIN INJ 1,000 MG in SODIUM CHLOR 0.9% 250 ML INJ 250 ML IV SCH (05:30)
[2017-08-07] MEDS: ACETAMINOPHEN/HYDROcodone 325 MG/5 MG TAB PO PRN (05:35)
[2017-08-07] MEDS: LEVOTHYROXINE SODIUM 25 MCG TAB PO SCH (05:35)
[2017-08-07] MEDS ORDERED: GENTAMICIN SULFATE 80 MG/2 ML VIAL ONE ×2 (07:38→09:21)
[2017-08-07] MEDS ORDERED: TRANEXAMIC ACID INJ 1,000 MG in SODIUM CHLORIDE 0.9% INJ 100 ML IV SCH ×2 (08:00→14:00)
[2017-08-07] MEDS: SODIUM CHLORIDE 0.9% FLUSH 10 ML FLUSH IV FLUSH SCH ×3 (09:00→19:56)
[2017-08-07] MEDS ORDERED: ACETAMINOPHEN 1000 MG/100 ML 100 ML IV ONE (09:37)
[2017-08-07] MEDS ORDERED: MIDAZOLAM HCL 2 MG/2 ML VIAL ONE (09:38)
[2017-08-07] MEDS ORDERED: LACTATED RINGER'S 1000 ML INJ 1,000 ML IV ONE (12:00)
[2017-08-07] MEDS ORDERED: ePHEDrine/NS 25 MG/5 ML SYRINGE IV ONE (12:00)
[2017-08-07] MEDS ORDERED: DEXAMETHASONE SOD PHOS 4 MG/ML VIAL IV ONE (12:00)
[2017-08-07] MEDS ORDERED: ONDANSETRON HCL 4 MG/2 ML VIAL IV ONE (12:00)
[2017-08-07] MEDS ORDERED: PHENYLEPH/NS 1000 MCG/10 ML SYR IV ONE (12:00)
[2017-08-07] MEDS ORDERED: SODIUM CHLOR 0.9% 250 ML INJ 250 ML IV ONE (12:00)
[2017-08-07] MEDS ORDERED: PROPOFOL 200 MG/20 ML AMP IV ONE (12:00)
[2017-08-07] MEDS ORDERED: LIDOCAINE HCL 1% PF 5 ML SYRINGE OTHER ONE (12:00)
[2017-08-07] MEDS ORDERED: OXYMETAZOLINE HCL 0.05% 15 ML NASAL SPRAY ONE (12:36)
[2017-08-07 12:41] LABS: HEMATOCRIT 32.6 % (35.0-46.0)
--- NOTE | 2017-08-07 13:08 | RADRPT ---
EXAM DATE/TIME: 08/07/2017 12:37 [facility] COMPARISON: FEMUR LEFT (AP & LAT/2VWS), August 06, 2017, 14:59. INDICATIONS : Post hardware placement left femur, fell MEDICAL HISTORY : Hypertension. SURGICAL HISTORY : Hysterectomy. ENCOUNTER: Subsequent ACUITY: 2 days PAIN SCORE: Non-responsive. LOCATION: Left Femur FINDINGS: 5 images from the OR have been submitted. There is a left total hip prosthesis in place. There is now a orthopedic plate along the lateral aspect of the proximal and mid femur secured by cerclage wires and screws. This successfully reduced since the proximal femoral fracture. CONCLUSION: Successful ORIF Aaron Soliman MD on August 07, 2017 at 13:03 Board Certified Radiologist. This report was verified electronically.
--- NOTE | 2017-08-07 13:26 | PD.OP ---
cc: Franco Nichole MD Operative Report Date of Surgery: Aug 07, 2017 Preoperative Diagnosis: (1) Periprosthetic fracture around internal prosthetic left hip joint Postoperative Diagnosis: (1) Periprosthetic fracture around internal prosthetic left hip joint Procedure: ORIF left periprosthetic proximal femur fracture Implants: Synthes cable plate Anesthesia: General Surgeon: Franco Nichole Air Compressor Engineer(s): Jaimie Angelo PA-C ([place]) The surgical procedure was assisted by my physician's electrician's assistant. Her presence was necessary throughout the case for manipulation and positioning of the surgical extremity. My PA was assisting me throughout the duration of this procedure. The skill set of the physician electrician's assistant was medically necessary to complete this procedure. During the surgical case the surgical assistant certified was working at the back table and the physician electrician's assistant was directly assisting me. Operation and Findings: Indications: This 66 old female who has had multiple joint replacements including a left total hip fell injuring the left hip. She had pain and inability ambulate. X-rays revealed a periprosthetic fracture. Recommendation given for internal fixation understanding the possible need for revision. Procedure and findings: The patient was taken to the operative suite and after undergoing an adequate level of general anesthesia was placed in the lateral decubitus position on the operating table. Preoperative antibiotics consisted of Ancef 2 g IV and vancomycin 1 g IV. The left lower external he was then prepped and draped in usual sterile fashion with alcohol, Hibiclens and ChloraPrep. Incision was made along the lateral aspect of the thigh to the greater trochanter. This was carried down through skin and subcutaneous tense tissue with a knife. Hemostasis was obtained with cautery. The iliotibial band was identified and split longitudinally. The vastus lateralis fascia was incised. The vastus was dissected off of the posterior fascia to the septum. Perforating vessels were coagulated and/or tagged. The fracture site was identified. It was curetted and irrigated of all fracture hematoma. It was initially difficult to reduce. Synthes cerclage cables were then passed. Utilizing this as well as manipulation and a reduction clamp the fracture was reduced. The 2 cerclage cables were then loaded onto the sleeve, tightened and the sleeves crimped. The position was checked in both the AP and lateral planes with the C-arm. A lateral plate was then applied. It did have an extension to the greater trochanter. Provisional fixation was accomplished distally with a cortical screw after drilling. The screw in sleeves were applied to the plate. Cables were passed, placed through the sleeves and the sleeve, tightened and the sleeves crimped. Additional distal screws were then placed. The position of the fracture reduction and placement of the internal fixation were checked in both the AP and lateral planes with the C-arm. The wound was thoroughly irrigated with pulse lavage. A Hemovac drain was left in place. It was closed in layers utilizing #1 Vicryl suture on the iliotibial band, 0 Vicryl suture on the deep tissue, 2-0 Vicryl suture in subcutaneous tense tissue and katelynn on the skin. Sterile dressings were applied, the patient was awakened, transferred to the hospital bed and taken to the recovery room in stable condition. Estimated blood loss: 800 cc Complications: None Franco Nichole MD Aug 07, 2017 13:26
[2017-08-07] MEDS ORDERED: Post-op Orders (for Pharmacy) XX ONE (13:30)
[2017-08-07] MEDS ORDERED: NALOXONE HCL 0.4 MG/ML AMP IV PUSH PRN (13:30)
[2017-08-07] MEDS ORDERED: MORPHINE SULFATE 8 MG/ML INJ IV PUSH PRN (13:30)
[2017-08-07] MEDS ORDERED: POVIDONE IODINE 10% SOLN 118 ML BOTTLE TOPICAL PRN (13:30)
[2017-08-07] MEDS ORDERED: MAGNESIUM HYDROXIDE SUSP 30 ML CUP PO PRN (13:30)
[2017-08-07] MEDS ORDERED: ONDANSETRON HCL 4 MG/2 ML VIAL IVP PRN (13:30)
[2017-08-07] MEDS ORDERED: MISCELLANEOUS NURSING INFORMATION XX PRN (13:30)
[2017-08-07] MEDS ORDERED: SENNOSIDES 8.6 MG TAB PO PRN (13:30)
[2017-08-07] MEDS ORDERED: BISACODYL 10 MG SUPP RECTAL PRN (13:30)
[2017-08-07] MEDS ORDERED: MORPHINE SULFATE 30 MG/30 ML PCA IV SCH (13:30)
[2017-08-07] MEDS ORDERED: ACETAMINOPHEN 325 MG TAB PO PRN (13:30)
[2017-08-07] MEDS ORDERED: LACTULOSE SYRUP 20 GM/30 ML CUP PO PRN (13:30)
[2017-08-07] MEDS ORDERED: MISCELLANEOUS PHARMACY INFORMATION XX ONE (13:30)
[2017-08-07] MEDS ORDERED: ALUMINUM/MAGNESIUM/SIMETH 30 ML CUP PO PRN (13:30)
[2017-08-07] MEDS ORDERED: SODIUM CHLORIDE 0.9% FLUSH 10 ML FLUSH IV FLUSH PRN (13:30)
[2017-08-07] MEDS ORDERED: oxyCODONE/ACETAMINOPHEN 5 MG/325 MG TAB PO PRN ×2 (13:30)
[2017-08-07] MEDS ORDERED: *morphine SULFATE 8 MG/ML PERIprocedure ONLY ONE ×3 (13:35→14:17)
[2017-08-07] MEDS ORDERED: DO NOT ADM ANY ANTICOAGULANT DRUGS PRN (14:15)
[2017-08-07] MEDS: LACTATED RINGER'S 1000 ML INJ 1,000 ML IV SCH (14:30)
[2017-08-07] MEDS: ceFAZolin 2 GM PREMIX 50 ML IV SCH ×2 (14:50→19:54)
--- NOTE | 2017-08-07 14:51 | HHI.PR ---
Subjective Remarks Follow-up for syncope and hip fracture around the prosthetic Patient seen in the PACU. She stated that she wanted to update about the history when she passed out. She stated that when she passed out she did look up to the ceiling and then felt lightheadedness and passed out. she was wondering if looking up like that can make you feel lightheaded and pass out since that also happened to her friend. Otherwise patient has no complaints. She stated that she will want to go home and not to rehab facility. Patient's PACU nurse at the bedside during the interview. No other episodes of syncope when patient was last seen. Objective Vitals Vital Signs Date Time Temp Pulse Resp B/P (MAP) Pulse Ox O2 Delivery O2 Flow Rate FiO2 08/07/17 13:26 97.9 79 14 120/74 (89) 100 Simple Mask 6 08/07/17 08:00 97.0 87 18 114/77 (89) 100 08/07/17 04:00 97.7 70 20 106/63 (77) 97 08/07/17 03:48 67 08/06/17 23:58 99.0 71 20 110/68 (82) 97 08/06/17 23:51 80 08/06/17 20:53 85 08/06/17 20:00 99.3 78 20 151/87 (108) 98 08/06/17 18:26 98.8 83 17 142/74 (96) 95 08/06/17 17:53 184/75 (111) 100 08/06/17 15:41 74 148/85 (106) 97 Room Air I/O 08/06/17 08/06/17 08/06/17 08/07/17 08/07/17 08/07/17 07:00 15:00 23:00 07:00 15:00 23:00 Intake Total 1340 ml 990 ml 1700 ml Output Total 1000 ml 1800 ml 2550 ml Balance 340 ml -810 ml -850 ml Intake Oral 340 ml 240 ml IV Total 1000 ml 750 ml 1700 ml Output Urine Total 1000 ml 1800 ml 1800 ml Estimated Blood Loss 750 ml # Voids 1 Result Diagram: 08/07/17 1200 08/06/17 1435 Objective Remarks GENERAL: in NAD CARDIOVASCULAR: Regular rate and rhythm without murmurs, gallops, or rubs. RESPIRATORY: Breath sounds equal bilaterally. No accessory muscle use. GASTROINTESTINAL: Abdomen soft, non-tender, nondistended. MUSCULOSKELETAL: left hip in splint and bandages Medications and IVs Current Medications Sodium Chloride (NS Flush) 2 ml UNSCH PRN IVF FLUSH AFTER USING IV ACCESS Last administered on 08/06/17 14:45; Start 08/06/17 at 14:30 Acetaminophen (Tylenol) 650 mg ONCE ONCE PO Last administered on 08/06/17 14: 45; Start 08/06/17 at 14:30; Stop 08/06/17 at 14:31; Status DC Sodium Chloride 500 ml @ 500 mls/hr BOLUS ONCE IV Last administered on 14:44; Start 08/06/17 at 14:30; Stop 08/06/17 at 15:29; Status DC Morphine Sulfate (Morphine Inj) 4 mg ONCE ONCE IV PUSH Last administered on at 16:56; Start 08/06/17 at 16:30; Stop 08/06/17 at 16:31; Status DC Sodium Chloride 1,000 ml @ 75 mls/hr [id number] IV Last administered on at 19:43; Start 08/06/17 at 16:28 Sodium Chloride (NS Flush) 2 ml UNSCH PRN IV FLUSH FLUSH AFTER USING IV ACCESS ; Start 08/06/17 at 16:30 Sodium Chloride (NS Flush) 2 ml BID IV FLUSH Last administered on 08/06/17at 19: 42; Start 08/06/17 at 21:00 Acetaminophen (Tylenol) 650 mg Q4H PRN PO TEMP > 100.4; Start 08/06/17 at 16:30 Ondansetron HCl (Zofran Inj) 4 mg Q6H PRN IVP NAUSEA OR VOMITING; Start at 16:30 Naloxone HCl (Narcan Inj) 0.4 mg UNSCH PRN IV PUSH SEE LABEL COMMENTS; Start at 16:30 Magnesium Hydroxide (Milk Of Magnesia Liq) 30 ml Q12H PRN PO Mild constipation Last administered on 08/06/17at 19:41; Start 08/06/17 at 16:30 Levothyroxine Sodium (Synthroid) 25 mcg DAILY@0600 PO Last administered on 08/07at 05:35; Start 08/07/17 at 06:00 Lisinopril (Prinivil) 20 mg DAILY PO ; Start 08/07/17 at 09:00 Calcium/Vitamin D (Oscal-D 250-125) 250 mg BID PO Last administered on at 19:41; Start 08/06/17 at 21:00 Heparin Sodium (Porcine) (Heparin Inj) 5,000 units Q8HR SQ ; Start 08/06/17 at 22:00 Acetaminophen/ Hydrocodone Bitart ([place] 5-325 Mg) 1 tab Q4H PRN PO pain 1-7; Start 08/06/17 at 17:45 Acetaminophen/ Hydrocodone Bitart ([place] 5-325 Mg) 2 tab Q4H PRN PO pain 8-10 Last administered on 08/07/17at 05:35; Start 08/06/17 at 17:45 Lactated Ringer's 1,000 ml @ 30 mls/hr Q24H PRN IV SEE LABEL COMMENTS; Start at 03:45; Stop 08/10/17 at 03:44 Metoprolol Tartrate (Lopressor) 25 mg SUPERVISOR OF OFFICIALS PRN PO SEE LABEL COMMENTS; Start 08/07/17 at 03:45; Stop 08/10/17 at 03:44 Povidone Iodine (Betadine 5% Antisepsis Kit) 1 applic SUPERVISOR OF OFFICIALS PRN EACH NARE SEE LABEL COMMENTS; Start 08/07/17 at 03:45; Stop 08/10/17 at 03:44 Chlorhexidine Gluconate (Chlorhexidine 2% Cloth) 3 pack SUPERVISOR OF OFFICIALS PRN TOPICAL SEE LABEL COMMENTS; Start 08/07/17 at 03:45; Stop 08/10/17 at 03:44 Cefazolin Sodium/ Dextrose 50 ml @ 100 mls/hr SUPERVISOR OF OFFICIALS IV Last administered on 08/07/17at 10:00; Start 08/07/17 at 05:30; Stop 08/10/17 at 05:29 Vancomycin HCl 1000 mg/Sodium Chloride 250 ml @ 250 mls/hr SUPERVISOR OF OFFICIALS IV Last administered on 08/07/17at 10:10; Start 08/07/17 at 05:30; Stop 08/10/17 at 05:29 Tranexamic Acid 1000 mg/Sodium Chloride 110 ml @ 200 mls/hr ONCE IV Last administered on 08/07/17at 10:00; Start 08/07/17 at 08:00; Stop 08/07/17 at 21:00 Gentamicin Sulfate (Gentamicin Inj) 240 mg STK-MED ONCE .ROUTE ; Start 08/07/17 at 07:38; Stop 08/07/17 at 07:39; Status DC Gentamicin Sulfate (Gentamicin Inj) 240 mg STK-MED ONCE .ROUTE Last administered on 08/07/17at 10:42; Start 08/07/17 at 09:21; Stop 08/07/17 at 09:22 ; Status DC Acetaminophen 100 ml @ As Directed STK-MED ONCE IV ; Start 08/07/17 at 09:37; Stop 08/07/17 at 09:38; Status DC Fentanyl Citrate (fentaNYL INJ) 200 mcg STK-MED ONCE .ROUTE ; Start 08/07/17 at 09:38; Stop 08/07/17 at 09:39; Status DC Midazolam HCl (Versed Inj) 2 mg STK-MED ONCE .ROUTE ; Start 08/07/17 at 09:38; Stop 08/07/17 at 09:39; Status DC Oxymetazoline HCl (Afrin 0.05% Juan Ramon Wadley) 15 spray STK-MED ONCE .ROUTE ; Start 08/07/17 at 12:36; Stop 08/07/17 at 12:37; Status DC Morphine Sulfate (*morphine INJ PERIprocedure ONLY) 8 mg STK-MED ONCE .ROUTE Last administered on 08/07/17at 13:36; Start 08/07/17 at 13:35; Stop 08/07/17 at 13:36; Status DC Lactated Ringer's 1,000 ml @ 80 mls/hr [id number] IV Last administered on at 14:30; Start 08/07/17 at 13:27 Sodium Chloride (NS Flush) 2 ml UNSCH PRN IV FLUSH FLUSH AFTER USING IV ACCESS ; Start 08/07/17 at 13:30 Sodium Chloride (NS Flush) 2 ml BID IV FLUSH ; Start 08/07/17 at 21:00 Cefazolin Sodium/ Dextrose 50 ml @ 100 mls/hr Q6H IV Last administered on 08/07at 14:50; Start 08/07/17 at 14:00; Stop 08/08/17 at 02:29 Miscellaneous Information (Post-op Orders (for Pharmacy)) STAT ONCE XX ; Start 08/07/17 at 13:30; Stop 08/07/17 at 13:56; Status DC Rivaroxaban (Xarelto) 10 mg DAILY PO ; Start 08/08/17 at 01:00 Miscellaneous Information UNSCH PRN XX SEE LABEL COMMENTS; Start 08/07/17 at 13:30 Miscellaneous Medication ([facility] [place] [facility] Information) ONCE ONCE XX ; Start at 13:30; Stop 08/07/17 at 13:44; Status DC Morphine Sulfate (Morphine Inj) 4 mg Q3H PRN IV PUSH Pain >7 when off ARTILLERY SPECIALIST; Start 08/07/17 at 13:30 Oxycodone/ Acetaminophen (Percocet 5-325 Mg) 1 tab Q4H PRN PO PAIN LESS THAN 5 ON SCALE; Start 08/07/17 at 13:30 Oxycodone/ Acetaminophen (Percocet 5-325 Mg) 2 tab Q4H PRN PO PAIN SCALE 5 TO 10; Start 08/07/17 at 13:30 Acetaminophen (Tylenol) 650 mg Q6H PRN PO TEMPERATURE > 101 F; Start 08/07/17 at 13:30 Tranexamic Acid 1000 mg/Sodium Chloride 110 ml @ 200 mls/hr UNSCH IV Last administered on 08/07/17at 14:47; Start 08/07/17 at 14:00; Stop 08/07/17 at 20:00 Multivitamins/ Minerals Therapeutic (Theragran M Tab) 1 tab BID PO ; Start 08/08 at 21:00; Stop 10/07/17 at 20:59 Ondansetron HCl (Zofran Inj) 4 mg Q6H PRN IVP NAUSEA OR VOMITING; Start at 13:30 Al Hydrox/Mg Hydrox/Simethicone (Mag-Al Plus Susp Liq) 30 ml Q6H PRN PO INDIGESTION; Start 08/07/17 at 13:30 Povidone Iodine (Betadine 10% Top Soln) 30 applic UNSCH X1 PRN TOPICAL WOUND CARE; Start 08/07/17 at 13:30; Stop 08/09/17 at 13:29 Senna/Docusate Sodium ([place]hell-Colace) 1 tab BID PO ; Start 2/25/18 at 21:00 Magnesium Hydroxide (Milk Of Magnesia Liq) 30 ml Q12H PRN PO Mild constipation ; Start 08/07/17 at 13:30 Sennosides (Senokot) 17.2 mg Q12H PRN PO Moderate constipation; Start 08/07/17 at 13:30 Bisacodyl (Dulcolax Supp) 10 mg DAILY PRN RECTAL SEVERE CONSITIPATION; Start at 13:30 Lactulose (Lactulose Liq) 30 ml DAILY PRN PO SEVERE CONSITIPATION; Start at 13:30 Naloxone HCl (Narcan Inj) 0.4 mg UNSCH PRN IV PUSH RESPIRATORY RATE LESS THAN 10; Start 08/07/17 at 13:30 Morphine Sulfate (Morphine 1 Mg/ ml ARTILLERY SPECIALIST) 30 mg UNSCH IV ; Start 08/07/17 at 13: 30 ARTILLERY SPECIALIST Dosage Infused (Pha) 1 Q8HR .XX ; Start 08/07/17 at 14:00 Morphine Sulfate (*morphine INJ PERIprocedure ONLY) 8 mg STK-MED ONCE .ROUTE Last administered on 08/07/17at 13:49; Start 08/07/17 at 13:45; Stop 08/07/17 at 13:46; Status DC Miscellaneous Information ALL NURSING DEPARTME... UNSCH PRN .XX SEE LABEL COMMENTS; Start 08/07/17 at 14:15; Stop 08/08/17 at 14:14 Morphine Sulfate (*morphine INJ PERIprocedure ONLY) 8 mg STK-MED ONCE .ROUTE Last administered on 08/07/17at 14:18; Start 08/07/17 at 14:17; Stop 08/07/17 at 14:18; Status DC A/P Assessment and Plan This is a 66-year-old female presented with a syncopal episode and left hip pain after fall Syncope -Most likely vasovagal. Labs reviewed negative. Troponin negative. EKG not impressive. will rule out cardiac etiology still pending workup. There is some delay in getting workup since patient was in the OR the entire morning per the afternoon. Still pending workup 2D echo and carotid ultrasound. Left hip fracture -Dr. Nichole consulted appreciate with assistance. -s/p ORIF left periprosthetic proximal femur fracture today on 08/[address] Nichole. Hypertension/status post gastric bypass surgery/OA -Continue home medication. DVT prophylaxis -Heparin Discharge Planning Patient stated that upon discharge she wants to go home not to SNF. Bruna Morel MD Aug 07, 2017 14:51
[2017-08-07] MEDS: SODIUM CHLOR 0.45% 1000 ML INJ 1,000 ML IV SCH (16:34)
[2017-08-07] MEDS: PCA - TOTAL MG MORPHINE DELIVERED PER SHIFT SCH ×2 (17:49→19:57)
[2017-08-07] MEDS: HEPARIN SODIUM - SQ 10,000 UNITS/ML VIAL SQ SCH ×2 (17:50→19:57)
[2017-08-07] MEDS: CALCIUM/VITAMIN D 250 MG/125 U TAB PO SCH ×2 (17:51→19:54)
[2017-08-07] MEDS: LISINOPRIL 20 MG TAB PO SCH (17:51)
[2017-08-07] MEDS: DOCUSATE SODIUM 50 MG/SENNA 8.6 MG TAB PO SCH (19:54)
[2017-08-08] VITALS (8 sets, daily range): BP systolic 101–116; BP diastolic 53–73; PULSE 72–102; RESP 15–18; TEMP 98.5–99.5; O2SAT 96–100
[2017-08-08] MEDS: ceFAZolin 2 GM PREMIX 50 ML IV SCH (00:50)
[2017-08-08] MEDS: RIVAROXABAN 10 MG TAB PO SCH ×2 (00:50→08:54)
[2017-08-08] MEDS: LACTATED RINGER'S 1000 ML INJ 1,000 ML IV SCH ×2 (00:56→13:56)
[2017-08-08] MEDS: LEVOTHYROXINE SODIUM 25 MCG TAB PO SCH (05:28)
[2017-08-08] MEDS: PCA - TOTAL MG MORPHINE DELIVERED PER SHIFT SCH (05:29)
[2017-08-08 05:48] LABS: HEMATOCRIT 26.5 % (35.0-46.0); HEMOGLOBIN 9.1 GM/DL (11.6-15.3)
[2017-08-08] MEDS: HEPARIN SODIUM - SQ 10,000 UNITS/ML VIAL SQ SCH ×2 (06:00→13:56)
--- NOTE | 2017-08-08 08:15 | PD.ORT.PN ---
Subjective Post Op Day #: 1 Subjective Remarks POD #1 ORIF left periprosthetic proximal femur fracture Patient is awake alert and sitting upright in bed. She states her pain is very well controlled and has only had to use pain pump twice. She does not have any complaints of dizziness or lightheadedness. Patient expresses interest in being discharged to proximal rehabilitation.. Objective Vitals Vital Signs Date Time Temp Pulse Resp B/P (MAP) Pulse Ox O2 Delivery O2 Flow Rate FiO2 08/08/17 06:55 Room Air 08/08/17 05:29 16 08/08/17 04:10 98.5 82 18 104/59 (74) 96 08/08/17 02:27 72 08/07/17 23:00 97.2 88 18 101/56 (71) 95 08/07/17 19:57 18 08/07/17 19:30 96.9 67 18 116/65 (82) 95 08/07/17 18:49 99 08/07/17 17:49 17 08/07/17 17:18 106 08/07/17 16:10 75 08/07/17 15:48 96.5 106 18 119/72 (88) 98 08/07/17 15:15 15 08/07/17 14:50 97.6 75 15 97 Nasal Cannula 2 08/07/17 14:45 74 15 115/67 (83) 98 Nasal Cannula 2 08/07/17 14:30 74 16 109/69 (82) 99 Nasal Cannula 2 08/07/17 14:15 78 14 118/76 (90) 97 Nasal Cannula 2 08/07/17 14:00 75 14 113/69 (84) 96 Nasal Cannula 2 08/07/17 13:45 67 14 97/58 (71) 98 Nasal Cannula 2 08/07/17 13:30 74 15 121/77 (92) 100 Simple Mask 6 08/07/17 13:26 97.9 79 14 120/74 (89) 100 Simple Mask 6 I/O 08/07/17 08/07/17 08/07/17 08/08/17 08/08/17 08/08/17 07:00 15:00 23:00 07:00 15:00 23:00 Intake Total 990 ml 1940 ml 360 ml Output Total 1800 ml 4050 ml 20 ml 670 ml Balance -810 ml -2110 ml -20 ml -310 ml Intake Oral 240 ml 240 ml 360 ml IV Total 750 ml 1700 ml Output Urine Total 1800 ml 3300 ml 650 ml Drainage Total 20 ml 20 ml Estimated Blood Loss 750 ml # Voids 1 # Bowel Movements 0 Result Diagram: 08/08/17 0457 08/06/17 1435 Imaging Last Impressions Femur X-Ray 08/07/17 0000 Signed Impressions: Service Date/Time: Monday, August 07, 2017 12:37 - CONCLUSION: Successful ORIF Aaron Soliman MD Head CT 08/06/17 142 Signed Impressions: Service Date/Time: Sunday, August 06, 2017 15:23 - CONCLUSION: Normal examination for a patient of this age. Jean-Claude Pineda MD Chest X-Ray [id number] Signed Impressions: Service Date/Time: Sunday, August 06, 2017 15:03 - CONCLUSION: No acute disease. Jean-Claude Pineda MD Cervical Spine CT [id number] Signed Impressions: Service Date/Time: Sunday, August 06, 2017 15:23 - CONCLUSION: 1. No acute bony fracture. 2. Primary degenerative changes, disc degeneration disc space narrowing from C4-C7. 3. Bilateral facet arthritis at multiple levels. Jean-Claude Pineda MD Pelvis X-Ray 08/06/17 0000 Signed Impressions: Service Date/Time: Sunday, August 06, 2017 14:56 - CONCLUSION: No acute fracture or joint dislocation involving the pelvis. Jean-Claude Pineda MD Carotid Artery Ultrasound 08/06/17 0000 Signed Impressions: Service Date/Time: Sunday, August 06, 2017 18:47 - CONCLUSION: 1. No significant atherosclerotic disease or stenosis is identified within either internal carotid artery. 2. There is antegrade flow in both vertebral arteries. Aaron Cardenas MD Procedures ORIF left periprosthetic proximal femur fracture 08/07/17 Objective Remarks LLE: Dressing dry and intact. + drain, Tender to palpation with mild swelling around incision site. Appropriate range of motion expected post operatively. Freely able to move distal digits. No calf pain. Negative Juan David's sign. Good cap refill. 2+ pedal pulses. Neurovascular intact. Assessment & Plan Ortho Post Op Day #: 1 Problem List: (1) Periprosthetic fracture around internal prosthetic left hip joint ICD Codes: M97.02XA - Periprosthetic fracture around internal prosthetic left hip joint, initial encounter (2) Syncope ICD Codes: R55 - Syncope and collapse Status: Acute Qualifiers: Qualified Codes: R55 - Syncope and collapse Assessment and Plan ORIF left periprosthetic proximal femur fracture Progress rehabilitation, toe-touch weightbearing Monitor postoperative anemia closely Daily dressing changes postoperative day 2 DC drain when less than 30 cc a shift Aspirin for DVT prophylaxis Discharge planning - most likely discharge to rehabilitation Jaimie Angelo Aug 08, 2017 08:14
[2017-08-08] MEDS: SODIUM CHLOR 0.45% 1000 ML INJ 1,000 ML IV SCH ×2 (08:28→21:48)
[2017-08-08] MEDS: CALCIUM/VITAMIN D 250 MG/125 U TAB PO SCH ×2 (08:54→20:40)
[2017-08-08] MEDS: SODIUM CHLORIDE 0.9% FLUSH 10 ML FLUSH IV FLUSH SCH ×4 (08:54→20:41)
[2017-08-08] MEDS: LISINOPRIL 20 MG TAB PO SCH (08:54)
[2017-08-08] MEDS: DOCUSATE SODIUM 50 MG/SENNA 8.6 MG TAB PO SCH ×2 (08:54→20:40)
--- NOTE | 2017-08-08 14:50 | HHI.PR ---
Subjective Remarks Follow-up for left hip fracture Patient stated that she did very well with physical therapist but then her blood pressure went low to systolic blood pressure in the 70s and that was momentarily then it went back up to 114. She stated that she did use the morphine pump this morning. Otherwise she said that she does not have any more symptoms in that she feels great. Patient stated that she is very determined to get better. Otherwise she denies any chest pain, shortness of breathing, palpitation, lightheadedness or dizziness. Objective Vitals Vital Signs Date Time Temp Pulse Resp B/P (MAP) Pulse Ox O2 Delivery O2 Flow Rate FiO2 08/08/17 12:00 98.9 89 17 101/53 (69) 100 08/08/17 11:41 114/73 (87) 08/08/17 08:13 91 08/08/17 08:00 98.6 102 16 116/65 (82) 100 08/08/17 06:55 Room Air 08/08/17 05:29 16 08/08/17 04:10 98.5 82 18 104/59 (74) 96 08/08/17 02:27 72 08/07/17 23:00 97.2 88 18 101/56 (71) 95 08/07/17 19:57 18 08/07/17 19:30 96.9 67 18 116/65 (82) 95 08/07/17 18:49 99 08/07/17 17:49 17 08/07/17 17:18 106 08/07/17 16:10 75 08/07/17 15:48 96.5 106 18 119/72 (88) 98 08/07/17 15:15 15 08/07/17 14:50 97.6 75 15 97 Nasal Cannula 2 I/O 08/07/17 08/07/17 08/07/17 08/08/17 08/08/17 08/08/17 07:00 15:00 23:00 07:00 15:00 23:00 Intake Total 990 ml 1940 ml 360 ml Output Total 1800 ml 4050 ml 20 ml 670 ml 2 ml Balance -810 ml -2110 ml -20 ml -310 ml -2 ml Intake Oral 240 ml 240 ml 360 ml IV Total 750 ml 1700 ml Output Urine Total 1800 ml 3300 ml 650 ml Drainage Total 20 ml 20 ml 2 ml Estimated Blood Loss 750 ml # Voids 1 # Bowel Movements 0 Result Diagram: 08/08/17 0457 08/06/17 8885 Objective Remarks GENERAL: in NAD CARDIOVASCULAR: Regular rate and rhythm without murmurs, gallops, or rubs. RESPIRATORY: Breath sounds equal bilaterally. No accessory muscle use. GASTROINTESTINAL: Abdomen soft, non-tender, nondistended. MUSCULOSKELETAL: left hip in bandages Medications and IVs Current Medications Sodium Chloride (NS Flush) 2 ml UNSCH PRN IVF FLUSH AFTER USING IV ACCESS Last administered on 08/06/17 14:45; Start 08/06/17 at 14:30 Acetaminophen (Tylenol) 650 mg ONCE ONCE PO Last administered on 08/06/17 14: 45; Start 08/06/17 at 14:30; Stop 08/06/17 at 14:31; Status DC Sodium Chloride 500 ml @ 500 mls/hr BOLUS ONCE IV Last administered on at 14:44; Start 08/06/17 at 14:30; Stop 08/06/17 at 15:29; Status DC Morphine Sulfate (Morphine Inj) 4 mg ONCE ONCE IV PUSH Last administered on at 16:56; Start 08/06/17 at 16:30; Stop 08/06/17 at 16:31; Status DC Sodium Chloride 1,000 ml @ 75 mls/hr [id number] IV Last administered on at 19:43; Start 08/06/17 at 16:28 Sodium Chloride (NS Flush) 2 ml UNSCH PRN IV FLUSH FLUSH AFTER USING IV ACCESS ; Start 08/06/17 at 16:30 Sodium Chloride (NS Flush) 2 ml BID IV FLUSH Last administered on 08/06/17at 19: 42; Start 08/06/17 at 21:00 Acetaminophen (Tylenol) 650 mg Q4H PRN PO TEMP > 100.4; Start 08/06/17 at 16:30 Ondansetron HCl (Zofran Inj) 4 mg Q6H PRN IVP NAUSEA OR VOMITING; Start at 16:30 Naloxone HCl (Narcan Inj) 0.4 mg UNSCH PRN IV PUSH SEE LABEL COMMENTS; Start at 16:30 Magnesium Hydroxide (Milk Of Magnesia Liq) 30 ml Q12H PRN PO Mild constipation Last administered on 08/06/17at 19:41; Start 08/06/17 at 16:30 Levothyroxine Sodium (Synthroid) 25 mcg DAILY@0600 PO Last administered on 08/08at 05:28; Start 08/07/17 at 06:00 Lisinopril (Prinivil) 20 mg DAILY PO Last administered on 08/08/17at 08:54; Start 08/07/17 at 09:00 Calcium/Vitamin D (Oscal-D 250-125) 250 mg BID PO Last administered on at 08:54; Start 08/06/17 at 21:00 Heparin Sodium (Porcine) (Heparin Inj) 5,000 units Q8HR SQ ; Start 08/06/17 at 22:00; Stop 08/08/17 at 14:05; Status DC Acetaminophen/ Hydrocodone Bitart ([place] 5-325 Mg) 1 tab Q4H PRN PO pain 1-7; Start 08/06/17 at 17:45 Acetaminophen/ Hydrocodone Bitart ([place] 5-325 Mg) 2 tab Q4H PRN PO pain 8-10 Last administered on 08/07/17at 05:35; Start 08/06/17 at 17:45 Lactated Ringer's 1,000 ml @ 30 mls/hr Q24H PRN IV SEE LABEL COMMENTS; Start at 03:45; Stop 08/10/17 at 03:44 Metoprolol Tartrate (Lopressor) 25 mg FLOORPERSON PRN PO SEE LABEL COMMENTS; Start 08/07/17 at 03:45; Stop 08/10/17 at 03:44 Povidone Iodine (Betadine 5% Antisepsis Kit) 1 applic FLOORPERSON PRN EACH NARE SEE LABEL COMMENTS; Start 08/07/17 at 03:45; Stop 08/10/17 at 03:44 Chlorhexidine Gluconate (Chlorhexidine 2% Cloth) 3 pack FLOORPERSON PRN TOPICAL SEE LABEL COMMENTS; Start 08/07/17 at 03:45; Stop 08/10/17 at 03:44 Cefazolin Sodium/ Dextrose 50 ml @ 100 mls/hr FLOORPERSON IV Last administered on 08/07/17at 10:00; Start 08/07/17 at 05:30; Stop 08/10/17 at 05:29 Vancomycin HCl 1000 mg/Sodium Chloride 250 ml @ 250 mls/hr FLOORPERSON IV Last administered on 08/07/17at 10:10; Start 08/07/17 at 05:30; Stop 08/10/17 at 05:29 Tranexamic Acid 1000 mg/Sodium Chloride 110 ml @ 200 mls/hr ONCE IV Last administered on 08/07/17at 10:00; Start 08/07/17 at 08:00; Stop 08/07/17 at 21:00 ; Status DC Gentamicin Sulfate (Gentamicin Inj) 240 mg STK-MED ONCE .ROUTE ; Start 08/07/17 at 07:38; Stop 08/07/17 at 07:39; Status DC Gentamicin Sulfate (Gentamicin Inj) 240 mg STK-MED ONCE .ROUTE Last administered on 08/07/17at 10:42; Start 08/07/17 at 09:21; Stop 08/07/17 at 09:22 ; Status DC Acetaminophen 100 ml @ As Directed STK-MED ONCE IV ; Start 08/07/17 at 09:37; Stop 08/07/17 at 09:38; Status DC Fentanyl Citrate (fentaNYL INJ) 200 mcg STK-MED ONCE .ROUTE ; Start 08/07/17 at 09:38; Stop 08/07/17 at 09:39; Status DC Midazolam HCl (Versed Inj) 2 mg STK-MED ONCE .ROUTE ; Start 08/07/17 at 09:38; Stop 08/07/17 at 09:39; Status DC Oxymetazoline HCl (Afrin 0.05% [place]on [place]) 15 spray STK-MED ONCE .ROUTE ; Start 08/07/17 at 12:36; Stop 08/07/17 at 12:37; Status DC Morphine Sulfate (*morphine INJ PERIprocedure ONLY) 8 mg STK-MED ONCE .ROUTE Last administered on 08/07/17at 13:36; Start 08/07/17 at 13:35; Stop 08/07/17 at 13:36; Status DC Lactated Ringer's 1,000 ml @ 80 mls/hr [id number] IV Last administered on at 00:56; Start 08/07/17 at 13:27 Sodium Chloride (NS Flush) 2 ml UNSCH PRN IV FLUSH FLUSH AFTER USING IV ACCESS ; Start 08/07/17 at 13:30 Sodium Chloride (NS Flush) 2 ml BID IV FLUSH ; Start 08/07/17 at 21:00 Cefazolin Sodium/ Dextrose 50 ml @ 100 mls/hr Q6H IV Last administered on 08/08at 00:50; Start 08/07/17 at 14:00; Stop 08/08/17 at 02:29; Status DC Miscellaneous Information (Post-op Orders (for Pharmacy)) STAT ONCE XX ; Start 08/07/17 at 13:30; Stop 08/07/17 at 13:56; Status DC Rivaroxaban (Xarelto) 10 mg DAILY PO Last administered on 08/08/17at 08:54; Start 08/08/17 at 01:00 Miscellaneous Information UNSCH PRN XX SEE LABEL COMMENTS; Start 08/07/17 at 13:30 Miscellaneous Medication ([facility]) ONCE ONCE XX ; Start at 13:30; Stop 08/07/17 at 13:44; Status DC Morphine Sulfate (Morphine Inj) 4 mg Q3H PRN IV PUSH Pain >7 when off [facility]; Start 08/07/17 at 13:30 Oxycodone/ Acetaminophen (Percocet 5-325 Mg) 1 tab Q4H PRN PO PAIN LESS THAN 5 ON SCALE; Start 08/07/17 at 13:30 Oxycodone/ Acetaminophen (Percocet 5-325 Mg) 2 tab Q4H PRN PO PAIN SCALE 5 TO 10; Start 08/07/17 at 13:30 Acetaminophen (Tylenol) 650 mg Q6H PRN PO TEMPERATURE > 101 F; Start 08/07/17 at 13:30 Tranexamic Acid 1000 mg/Sodium Chloride 110 ml @ 200 mls/hr UNSCH IV Last administered on 08/07/17at 14:47; Start 08/07/17 at 14:00; Stop 08/07/17 at 20:00 ; Status DC Multivitamins/ Minerals Therapeutic (Theragran M Tab) 1 tab BID PO ; Start 08/08 at 21:00; Stop 10/07/17 at 20:59 Ondansetron HCl (Zofran Inj) 4 mg Q6H PRN IVP NAUSEA OR VOMITING; Start at 13:30 Al Hydrox/Mg Hydrox/Simethicone (Mag-Al Plus Susp Liq) 30 ml Q6H PRN PO INDIGESTION; Start 08/07/17 at 13:30 Povidone Iodine (Betadine 10% Top Soln) 30 applic UNSCH X1 PRN TOPICAL WOUND CARE; Start 08/07/17 at 13:30; Stop 08/09/17 at 13:29 Senna/Docusate Sodium (Lashell-Colace) 1 tab BID PO Last administered on at 08:54; Start 08/07/17 at 21:00 Magnesium Hydroxide (Milk Of Magnesia Liq) 30 ml Q12H PRN PO Mild constipation ; Start 08/07/17 at 13:30 Sennosides (Senokot) 17.2 mg Q12H PRN PO Moderate constipation; Start 08/07/17 at 13:30 Bisacodyl (Dulcolax Supp) 10 mg DAILY PRN RECTAL SEVERE CONSITIPATION; Start at 13:30 Lactulose (Lactulose Liq) 30 ml DAILY PRN PO SEVERE CONSITIPATION; Start at 13:30 Naloxone HCl (Narcan Inj) 0.4 mg UNSCH PRN IV PUSH RESPIRATORY RATE LESS THAN 10; Start 08/07/17 at 13:30; Stop 08/08/17 at 13:26; Status DC Morphine Sulfate (Morphine 1 Mg/ ml [facility]) 30 mg UNSCH IV Last administered on at 15:15; Start 08/07/17 at 13:30; Stop 08/08/17 at 13:26; Status DC [facility] Dosage Infused (Pha) 1 Q8HR .XX Last administered on 08/08/17at 05:29; Start 08/07/17 at 14:00; Stop 08/08/17 at 13:26; Status DC Morphine Sulfate (*morphine INJ PERIprocedure ONLY) 8 mg STK-MED ONCE .ROUTE Last administered on 08/07/17at 13:49; Start 08/07/17 at 13:45; Stop 08/07/17 at 13:46; Status DC Miscellaneous Information ALL NURSING DEPARTME... UNSCH PRN .XX SEE LABEL COMMENTS; Start 08/07/17 at 14:15; Stop 08/08/17 at 14:14; Status DC Morphine Sulfate (*morphine INJ PERIprocedure ONLY) 8 mg STK-MED ONCE .ROUTE Last administered on 08/07/17at 14:18; Start 08/07/17 at 14:17; Stop 08/07/17 at 14:18; Status DC Lactated Ringer's 1,000 ml @ As Directed STK-MED ONCE IV ; Start 08/07/17 at 12 :00; Stop 08/08/17 at 12:27; Status DC Sodium Chloride 250 ml @ As Directed STK-MED ONCE IV ; Start 08/07/17 at 12:00 ; Stop 08/08/17 at 12:27; Status DC Lidocaine HCl (Xylocaine-Mpf 1% Inj) 10 ml STK-MED ONCE OTHER ; Start 08/07/17 at 12:00; Stop 08/08/17 at 12:27; Status DC Phenylephrine HCl (Neosynephrine/ NS 1000 Mcg/10ml Syr) 1,000 mcg STK-MED ONCE IV ; Start 08/07/17 at 12:00; Stop 08/08/17 at 12:27; Status DC Ephedrine Sulfate (ePHEDrine/NS 25 MG/5 ML SYR) 25 mg STK-MED ONCE IV ; Start at 12:00; Stop 08/08/17 at 12:27; Status DC Dexamethasone Sodium Phosphate (Decadron Inj) 4 mg STK-MED ONCE IV ; Start 08/07 at 12:00; Stop 08/08/17 at 12:27; Status DC Ondansetron HCl (Zofran Inj) 4 mg STK-MED ONCE IV ; Start 08/07/17 at 12:00; Stop 08/08/17 at 12:27; Status DC Propofol (Diprivan 200 Mg/20 ml Inj) 200 mg STK-MED ONCE IV ; Start 08/07/17 at 12:00; Stop 08/08/17 at 12:27; Status DC A/P Assessment and Plan This is a 66-year-old female presented with a syncopal episode and left hip pain after fall Syncope -Most likely vasovagal. Labs reviewed negative. Troponin negative. EKG not impressive. Carotid ultrasound reviewed negative. Pending echo. Left hip fracture -Dr. Nichole consulted appreciate with assistance. -s/p ORIF left periprosthetic proximal femur fracture on 08/[address] Nichole. -PT consult appear most likely will need to go to rehab upon discharge. Episode of hypotension -Most likely secondary to morphine use. Resolve quickly. Will DC [facility] pump and use [place] as needed since pain is also seem to be controlled. Hypertension/status post gastric bypass surgery/OA -Continue home medication. DVT prophylaxis -Heparin Discharge Planning Once medically clear patient will need to be discharged to rehab facility. Bruna Morel MD Aug 08, 2017 14:50
--- NOTE | 2017-08-08 15:20 | EKG ---
Date Performed: 08/07/2017 Time Performed: 14:21:38 PTAGE: 66 years EKG: Sinus rhythm WITH OCCASIONAL VENTRICULAR PREMATURE COMPLEXES LEFT ANTERIOR FASCICULAR BLOCK NONSPECIFIC T-WAVE AB NORMALITY Q wave changes are more marked from previous tracing Clinical correlation is recommended AB NORMAL ECG PREVIOUS TRACING : 08/06/2017 14.24 DOCTOR: Rigo Valdez Interpretating Date/Time 08/08/2017 15:19:34
--- NOTE | 2017-08-08 18:19 | ECHRPT ---
Indication: CVA/TIA CONCLUSIONS Very technically difficult study In limited views, the left ventricular systolic function is low normal with an estimated ejection fr action in the range of 50-55%. Trace mitral valve regurgitation. There is trace tricuspid valve regurgitation. BP: 104 / 59 HR: 82 Rhythm: Sinus MEASUREMENTS (Male / Female) Normal Values Technical Quality:Very technically difficult study 2D ECHO LVOT Diameter 2.3 cm Aortic Root Diameter 3.4 cm DOPPLER AV Peak Velocity 110.0 cm/s AV Peak Gradient 4.8 mmHg AV Mean Gradient 3.0 mmHg AV Velocity Time Integral 19.2 cm LVOT Peak Velocity 64.6 cm/s LVOT Peak Gradient 1.7 mmHg LVOT Velocity Time Integral 11.1 cm AV Area Cont Eq vti 2.4 cm AV Area Cont Eq pk 2.4 cm LV E' Lateral Velocity 15.7 cm/s LV E' Septal Velocity 9.2 cm/s TR Peak Velocity 309.0 cm/s TR Peak Gradient 38.0 mmHg Right Atrial Pressure 10.0 mmHg Pulmonary Artery Systolic Pressu 48.2 mmHg Right Ventricular Systolic Press 48.2 mmHg FINDINGS LEFT VENTRICLE Normal left ventricular size. In limited views, the left ventricular systolic function is low normal with an estimated ejection fr action in the range of 50-55%. RIGHT VENTRICLE The right ventricle was not well visualized. LEFT ATRIUM The left atrial size is normal. RIGHT ATRIUM The right atrium is not well visualized. ATRIAL SEPTUM Normal atrial septal thickness AORTA The aortic root and proximal ascending aorta are not well visualized. MITRAL VALVE Grossly normal mitral valve Trace mitral valve regurgitation. AORTIC VALVE The aortic valve is not well visualized. No aortic valve regurgitation. No aortic valve stenosis. TRICUSPID VALVE The tricuspid valve is not well visualized. There is trace tricuspid valve regurgitation. The estimated pulmonary arterial pressure is 48.2 mmHg. PULMONARY VALVE No pulmonary valve regurgitation or stenosis. VESSELS The inferior vena cava was not well visualized. Jordy Mills DO (Electronically Signed) Final Date:08 August 2017 18:18
[2017-08-08] MEDS: MULTIVITAMINS/MINERALS THERAPEUTIC TAB PO SCH (20:40)
[2017-08-09] VITALS (7 sets, daily range): BP systolic 102–113; BP diastolic 56–71; PULSE 78–116; RESP 16–19; TEMP 96.9–98.5; O2SAT 94–100
[2017-08-09] MEDS: LACTATED RINGER'S 1000 ML INJ 1,000 ML IV SCH ×2 (02:57→15:27)
[2017-08-09] MEDS: LEVOTHYROXINE SODIUM 25 MCG TAB PO SCH (05:38)
--- NOTE | 2017-08-09 07:33 | PD.ORT.PN ---
Subjective Subjective Remarks POD #2 ORIF left periprosthetic proximal femur fracture Patient is awake alert and sitting upright in bed. She states her pain is very well controlled. Patient expresses interest in being discharged to rehab. Patient states she did have a small episode of hypotension yesterday with physical therapy and was not able to attempt walking yet. Objective Vitals Vital Signs Date Time Temp Pulse Resp B/P (MAP) Pulse Ox O2 Delivery O2 Flow Rate FiO2 08/09/17 07:26 85 08/09/17 07:14 Room Air 08/09/17 04:40 97.2 86 17 108/71 (83) 94 08/09/17 00:50 97.8 78 17 110/63 (79) 97 08/08/17 20:35 99.0 93 18 110/57 (74) 97 08/08/17 16:00 99.5 88 15 115/63 (80) 99 08/08/17 12:00 98.9 89 17 101/53 (69) 100 08/08/17 11:41 114/73 (87) 08/08/17 08:13 91 08/08/17 08:00 98.6 102 16 116/65 (82) 100 I/O 08/08/17 08/08/17 08/08/17 08/09/17 08/09/17 08/09/17 07:00 15:00 23:00 07:00 15:00 23:00 Intake Total 360 ml 480 ml 360 ml 360 ml Output Total 670 ml 802 ml Balance -310 ml -322 ml 360 ml 360 ml Intake Oral 360 ml 480 ml 360 ml 360 ml Output Urine Total 650 ml 800 ml Drainage Total 20 ml 2 ml # Voids 2 2 # Bowel Movements 0 0 0 0 Result Diagram: 08/08/17 0457 08/06/17 1435 Imaging Last Impressions Femur X-Ray 08/07/17 0000 Signed Impressions: Service Date/Time: Monday, August 07, 2017 12:37 - CONCLUSION: Successful ORIF Aaron Soliman MD Head CT 08/06/17 1423 Signed Impressions: Service Date/Time: Sunday, August 06, 2017 15:23 - CONCLUSION: Normal examination for a patient of this age. Jean-Claude Pineda MD Chest X-Ray 08/06/171422 Signed Impressions: Service Date/Time: Sunday, August 06, 2017 15:03 - CONCLUSION: No acute disease. Jean-Claude Pineda MD Cervical Spine CT 08/06/17 1423 Signed Impressions: Service Date/Time: Sunday, August 06, 2017 15:23 - CONCLUSION: 1. No acute bony fracture. 2. Primary degenerative changes, disc degeneration disc space narrowing from C4-C7. 3. Bilateral facet arthritis at multiple levels. Jean-Claude Pineda MD Pelvis X-Ray 08/06/17 0000 Signed Impressions: Service Date/Time: Sunday, August 06, 2017 14:56 - CONCLUSION: No acute fracture or joint dislocation involving the pelvis. Jean-Claude Pineda MD Carotid Artery Ultrasound 08/06/17 0000 Signed Impressions: Service Date/Time: Sunday, August 06, 2017 18:47 - CONCLUSION: 1. No significant atherosclerotic disease or stenosis is identified within either internal carotid artery. 2. There is antegrade flow in both vertebral arteries. Aaron Cardenas MD Procedures ORIF left periprosthetic proximal femur fracture 08/07/17 Objective Remarks LLE: Dressing dry and intact. Tender to palpation with mild swelling around incision site. Appropriate range of motion expected post operatively. Freely able to move distal digits. No calf pain. Negative Juan David's sign. Good cap refill. 2+ pedal pulses. Neurovascular intact. Assessment & Plan Problem List: (1) Periprosthetic fracture around internal prosthetic left hip joint ICD Codes: M97.02XA - Periprosthetic fracture around internal prosthetic left hip joint, initial encounter (2) Syncope ICD Codes: R55 - Syncope and collapse Status: Acute Qualifiers: Qualified Codes: R55 - Syncope and collapse Assessment and Plan POD #2 ORIF left periprosthetic proximal femur fracture Progress rehabilitation, toe-touch weightbearing Monitor postoperative anemia closely Daily dressing changes Aspirin 81mg BID for DVT prophylaxis, 20 days Discharge planning - most likely discharge to rehab Rehabilitation RN to [facility] pace postoperative day 8, 08/15/2017 Follow-up with Dr. Nichole in approximately 3 weeks Jaimie Angelo Aug 09, 2017 07:33
[2017-08-09] MEDS: LISINOPRIL 20 MG TAB PO SCH (08:22)
[2017-08-09] MEDS: SODIUM CHLORIDE 0.9% FLUSH 10 ML FLUSH IV FLUSH SCH ×4 (08:22→21:00)
[2017-08-09] MEDS: MULTIVITAMINS/MINERALS THERAPEUTIC TAB PO SCH ×2 (08:30→20:40)
[2017-08-09] MEDS: CALCIUM/VITAMIN D 250 MG/125 U TAB PO SCH ×2 (08:30→20:40)
[2017-08-09] MEDS: RIVAROXABAN 10 MG TAB PO SCH (08:30)
[2017-08-09] MEDS: DOCUSATE SODIUM 50 MG/SENNA 8.6 MG TAB PO SCH ×2 (08:30→20:40)
[2017-08-09] MEDS: MAGNESIUM HYDROXIDE SUSP 30 ML CUP PO PRN (08:30)
[2017-08-09] MEDS: SODIUM CHLOR 0.45% 1000 ML INJ 1,000 ML IV SCH (11:08)
--- NOTE | 2017-08-09 11:58 | HHI.PR ---
Subjective Remarks Follow-up for postop hip surgery and syncopal episode Hypotension resolved. Patient only had one episode yesterday after getting [employer] morphine. Since then she has not had any hypotensive episode. Patient denies any dizziness lightheadedness. She also denies any chest pain or shortness breathing. She said that she feels great. Patient very motivated to go to rehab. No other events. Discussed case patient's nurse. She also has no complaints. Objective Vitals Vital Signs Date Time Temp Pulse Resp B/P (MAP) Pulse Ox O2 Delivery O2 Flow Rate FiO2 08/09/17 11:39 97.0 83 19 109/57 (74) 95 08/09/17 07:40 98.5 89 19 113/59 (77) 97 08/09/17 07:26 85 08/09/17 07:14 Room Air 08/09/17 04:40 97.2 86 17 108/71 (83) 94 08/09/17 00:50 97.8 78 17 110/63 (79) 97 08/08/17 20:35 99.0 93 18 110/57 (74) 97 08/08/17 16:00 99.5 88 15 115/63 (80) 99 08/08/17 12:00 98.9 89 17 101/53 (69) 100 I/O 08/08/17 08/08/17 08/08/17 08/09/17 08/09/17 08/09/17 07:00 15:00 23:00 07:00 15:00 23:00 Intake Total 360 ml 480 ml 360 ml 360 ml Output Total 670 ml 802 ml Balance -310 ml -322 ml 360 ml 360 ml Intake Oral 360 ml 480 ml 360 ml 360 ml Output Urine Total 650 ml 800 ml Drainage Total 20 ml 2 ml # Voids 2 2 # Bowel Movements 0 0 0 0 Result Diagram: 08/08/17 0457 08/06/17 1435 Objective Remarks GENERAL: in NAD CARDIOVASCULAR: Regular rate and rhythm without murmurs, gallops, or rubs. RESPIRATORY: Breath sounds equal bilaterally. No accessory muscle use. GASTROINTESTINAL: Abdomen soft, non-tender, nondistended. MUSCULOSKELETAL: left hip in bandages Medications and IVs Current Medications Sodium Chloride (NS Flush) 2 ml UNSCH PRN IVF FLUSH AFTER USING IV ACCESS Last administered on 08/06/17at 14:45; Start 08/06/17 at 14:30 Acetaminophen (Tylenol) 650 mg ONCE ONCE PO Last administered on 08/06/17at 14: 45; Start 08/06/17 at 14:30; Stop 08/06/17 at 14:31; Status DC Sodium Chloride 500 ml @ 500 mls/hr BOLUS ONCE IV Last administered on at 14:44; Start 08/06/17 at 14:30; Stop 08/06/17 at 15:29; Status DC Morphine Sulfate (Morphine Inj) 4 mg ONCE ONCE IV PUSH Last administered on at 16:56; Start 08/06/17 at 16:30; Stop 08/06/17 at 16:31; Status DC Sodium Chloride 1,000 ml @ 75 mls/hr [id number] IV Last administered on at 19:43; Start 08/06/17 at 16:28 Sodium Chloride (NS Flush) 2 ml UNSCH PRN IV FLUSH FLUSH AFTER USING IV ACCESS ; Start 08/06/17 at 16:30 Sodium Chloride (NS Flush) 2 ml BID IV FLUSH Last administered on 08/08/17at 20: 40; Start 08/06/17 at 21:00 Acetaminophen (Tylenol) 650 mg Q4H PRN PO TEMP > 100.4; Start 08/06/17 at 16:30 Ondansetron HCl (Zofran Inj) 4 mg Q6H PRN IVP NAUSEA OR VOMITING; Start at 16:30 Naloxone HCl (Narcan Inj) 0.4 mg UNSCH PRN IV PUSH SEE LABEL COMMENTS; Start at 16:30 Magnesium Hydroxide (Milk Of Magnesia Liq) 30 ml Q12H PRN PO Mild constipation Last administered on 08/09/17at 08:30; Start 08/06/17 at 16:30 Levothyroxine Sodium (Synthroid) 25 mcg DAILY@0600 PO Last administered on 08/09at 05:38; Start 08/07/17 at 06:00 Lisinopril (Prinivil) 20 mg DAILY PO Last administered on 08/08/17at 08:54; Start 08/07/17 at 09:00 Calcium/Vitamin D (Oscal-D 250-125) 250 mg BID PO Last administered on at 08:30; Start 08/06/17 at 21:00 Heparin Sodium (Porcine) (Heparin Inj) 5,000 units Q8HR SQ ; Start 08/06/17 at 22:00; Stop 08/08/17 at 14:05; Status DC Acetaminophen/ Hydrocodone Bitart ([place] 5-325 Mg) 1 tab Q4H PRN PO pain 1-7 Last administered on 08/09/17at 08:31; Start 08/06/17 at 17:45 Acetaminophen/ Hydrocodone Bitart ([place] 5-325 Mg) 2 tab Q4H PRN PO pain 8-10 Last administered on 08/07/17at 05:35; Start 08/06/17 at 17:45 Lactated Ringer's 1,000 ml @ 30 mls/hr Q24H PRN IV SEE LABEL COMMENTS; Start at 03:45; Stop 08/10/17 at 03:44 Metoprolol Tartrate (Lopressor) 25 mg [employer] PRN PO SEE LABEL COMMENTS; Start 08/07/17 at 03:45; Stop 08/10/17 at 03:44 Povidone Iodine (Betadine 5% Antisepsis Kit) 1 applic [employer] PRN EACH NARE SEE LABEL COMMENTS; Start 08/07/17 at 03:45; Stop 08/10/17 at 03:44 Chlorhexidine Gluconate (Chlorhexidine 2% Cloth) 3 pack [employer] PRN TOPICAL SEE LABEL COMMENTS; Start 08/07/17 at 03:45; Stop 08/10/17 at 03:44 Cefazolin Sodium/ Dextrose 50 ml @ 100 mls/hr [employer] IV Last administered on 08/07/17at 10:00; Start 08/07/17 at 05:30; Stop 08/10/17 at 05:29 Vancomycin HCl 1000 mg/Sodium Chloride 250 ml @ 250 mls/hr [employer] IV Last administered on 08/07/17at 10:10; Start 08/07/17 at 05:30; Stop 08/10/17 at 05:29 Tranexamic Acid 1000 mg/Sodium Chloride 110 ml @ 200 mls/hr ONCE IV Last administered on 08/07/17at 10:00; Start 08/07/17 at 08:00; Stop 08/07/17 at 21:00 ; Status DC Gentamicin Sulfate (Gentamicin Inj) 240 mg STK-MED ONCE .ROUTE ; Start 08/07/17 at 07:38; Stop 08/07/17 at 07:39; Status DC Gentamicin Sulfate (Gentamicin Inj) 240 mg STK-MED ONCE .ROUTE Last administered on 08/07/17at 10:42; Start 08/07/17 at 09:21; Stop 08/07/17 at 09:22 ; Status DC Acetaminophen 100 ml @ As Directed STK-MED ONCE IV ; Start 08/07/17 at 09:37; Stop 08/07/17 at 09:38; Status DC Fentanyl Citrate (fentaNYL INJ) 200 mcg STK-MED ONCE .ROUTE ; Start 08/07/17 at 09:38; Stop 08/07/17 at 09:39; Status DC Midazolam HCl (Versed Inj) 2 mg STK-MED ONCE .ROUTE ; Start 08/07/17 at 09:38; Stop 08/07/17 at 09:39; Status DC Oxymetazoline HCl (Afrin 0.05% [place]) 15 spray STK-MED ONCE .ROUTE ; Start 08/07/17 at 12:36; Stop 08/07/17 at 12:37; Status DC Morphine Sulfate (*morphine INJ PERIprocedure ONLY) 8 mg STK-MED ONCE .ROUTE Last administered on 08/07/17at 13:36; Start 08/07/17 at 13:35; Stop 08/07/17 at 13:36; Status DC Lactated Ringer's 1,000 ml @ 80 mls/hr [id number] IV Last administered on at 00:56; Start 08/07/17 at 13:27 Sodium Chloride (NS Flush) 2 ml UNSCH PRN IV FLUSH FLUSH AFTER USING IV ACCESS ; Start 08/07/17 at 13:30 Sodium Chloride (NS Flush) 2 ml BID IV FLUSH Last administered on 08/09/17at 08: 30; Start 08/07/17 at 21:00 Cefazolin Sodium/ Dextrose 50 ml @ 100 mls/hr Q6H IV Last administered on 08/08at 00:50; Start 08/07/17 at 14:00; Stop 08/08/17 at 02:29; Status DC Miscellaneous Information (Post-op Orders (for Pharmacy)) STAT ONCE XX ; Start 08/07/17 at 13:30; Stop 08/07/17 at 13:56; Status DC Rivaroxaban (Xarelto) 10 mg DAILY PO Last administered on 08/09/17at 08:30; Start 08/08/17 at 01:00 Miscellaneous Information UNSCH PRN XX SEE LABEL COMMENTS; Start 08/07/17 at 13:30 Miscellaneous Medication ([facility] Pharmacy Information) ONCE ONCE XX ; Start at 13:30; Stop 08/07/17 at 13:44; Status DC Morphine Sulfate (Morphine Inj) 4 mg Q3H PRN IV PUSH Pain >7 when off [employer]; Start 08/07/17 at 13:30 Oxycodone/ Acetaminophen (Percocet 5-325 Mg) 1 tab Q4H PRN PO PAIN LESS THAN 5 ON SCALE; Start 08/07/17 at 13:30 Oxycodone/ Acetaminophen (Percocet 5-325 Mg) 2 tab Q4H PRN PO PAIN SCALE 5 TO 10; Start 08/07/17 at 13:30 Acetaminophen (Tylenol) 650 mg Q6H PRN PO TEMPERATURE > 101 F; Start 08/07/17 at 13:30 Tranexamic Acid 1000 mg/Sodium Chloride 110 ml @ 200 mls/hr UNSCH IV Last administered on 08/07/17at 14:47; Start 08/07/17 at 14:00; Stop 08/07/17 at 20:00 ; Status DC Multivitamins/ Minerals Therapeutic (Theragran M Tab) 1 tab BID PO Last administered on 08/09/17at 08:30; Start 08/08/17 at 21:00; Stop 10/07/17 at 20:59 Ondansetron HCl (Zofran Inj) 4 mg Q6H PRN IVP NAUSEA OR VOMITING; Start at 13:30 Al Hydrox/Mg Hydrox/Simethicone (Mag-Al Plus Susp Liq) 30 ml Q6H PRN PO INDIGESTION; Start 08/07/17 at 13:30 Povidone Iodine (Betadine 10% Top Soln) 30 applic UNSCH X1 PRN TOPICAL WOUND CARE; Start 08/07/17 at 13:30; Stop 08/09/17 at 13:29 Senna/Docusate Sodium ([place]-Colace) 1 tab BID PO Last administered on at 08:30; Start 08/07/17 at 21:00 Magnesium Hydroxide (Milk Of Magnesia Liq) 30 ml Q12H PRN PO Mild constipation ; Start 08/07/17 at 13:30 Sennosides (Senokot) 17.2 mg Q12H PRN PO Moderate constipation; Start 08/07/17 at 13:30 Bisacodyl (Dulcolax Supp) 10 mg DAILY PRN RECTAL SEVERE CONSITIPATION; Start at 13:30 Lactulose (Lactulose Liq) 30 ml DAILY PRN PO SEVERE CONSITIPATION; Start at 13:30 Naloxone HCl (Narcan Inj) 0.4 mg UNSCH PRN IV PUSH RESPIRATORY RATE LESS THAN 10; Start 08/07/17 at 13:30; Stop 08/08/17 at 13:26; Status DC Morphine Sulfate (Morphine 1 Mg/ ml [employer]) 30 mg UNSCH IV Last administered on at 15:15; Start 08/07/17 at 13:30; Stop 08/08/17 at 13:26; Status DC [employer] Dosage Infused (Pha) 1 Q8HR .XX Last administered on 08/08/17at 05:29; Start 08/07/17 at 14:00; Stop 08/08/17 at 13:26; Status DC Morphine Sulfate (*morphine INJ PERIprocedure ONLY) 8 mg STK-MED ONCE .ROUTE Last administered on 08/07/17at 13:49; Start 08/07/17 at 13:45; Stop 08/07/17 at 13:46; Status DC Miscellaneous Information ALL NURSING DEPARTME... UNSCH PRN .XX SEE LABEL COMMENTS; Start 08/07/17 at 14:15; Stop 08/08/17 at 14:14; Status DC Morphine Sulfate (*morphine INJ PERIprocedure ONLY) 8 mg STK-MED ONCE .ROUTE Last administered on 08/07/17at 14:18; Start 08/07/17 at 14:17; Stop 08/07/17 at 14:18; Status DC Lactated Ringer's 1,000 ml @ As Directed STK-MED ONCE IV ; Start 08/07/17 at 12 :00; Stop 08/08/17 at 12:27; Status DC Sodium Chloride 250 ml @ As Directed STK-MED ONCE IV ; Start 08/07/17 at 12:00 ; Stop 08/08/17 at 12:27; Status DC Lidocaine HCl (Xylocaine-Mpf 1% Inj) 10 ml STK-MED ONCE OTHER ; Start 08/07/17 at 12:00; Stop 08/08/17 at 12:27; Status DC Phenylephrine HCl (Neosynephrine/ NS 1000 Mcg/10ml Syr) 1,000 mcg STK-MED ONCE IV ; Start 08/07/17 at 12:00; Stop 08/08/17 at 12:27; Status DC Ephedrine Sulfate (ePHEDrine/NS 25 MG/5 ML SYR) 25 mg STK-MED ONCE IV ; Start at 12:00; Stop 08/08/17 at 12:27; Status DC Dexamethasone Sodium Phosphate (Decadron Inj) 4 mg STK-MED ONCE IV ; Start 08/07 at 12:00; Stop 08/08/17 at 12:27; Status DC Ondansetron HCl (Zofran Inj) 4 mg STK-MED ONCE IV ; Start 08/07/17 at 12:00; Stop 08/08/17 at 12:27; Status DC Propofol (Diprivan 200 Mg/20 ml Inj) 200 mg STK-MED ONCE IV ; Start 08/07/17 at 12:00; Stop 08/08/17 at 12:27; Status DC A/P Assessment and Plan This is a 66-year-old female presented with a syncopal episode and left hip pain after fall Syncope -Most likely vasovagal. Labs reviewed negative. Troponin negative. EKG not impressive. Carotid ultrasound reviewed negative. Pending echo. Left hip fracture -Dr. Nichole consulted appreciate with assistance. -s/p ORIF left periprosthetic proximal femur fracture on 08/[address] Nichole. -Per Ortho progress rehabilitation, toe-touch weightbearing, monitor postoperative anemia closely, daily dressing changes, aspirin 81mg BID for DVT prophylaxis, 20 days. Rehabilitation RN to [facility] postoperative day 8, 08/15/2017 Follow-up with Dr. Nichole in approximately 3 weeks -Pending authorization for inpatient rehab. Episode of hypotension -Most likely secondary to morphine use. Resolve quickly. No episodes since that one episode and since [employer] pump was discontinued. Hypertension/status post gastric bypass surgery/OA -Continue home medication. DVT prophylaxis -Heparin Discharge Planning Patient medically stable to be discharged to inpatient rehab. Pending authorization. Discussed case with patient nurse who will call me if authorization is approved. Bruna Morel MD Aug 09, 2017 11:58
[2017-08-10] MEDS: SODIUM CHLOR 0.45% 1000 ML INJ 1,000 ML IV SCH ×2 (00:28→12:53)
[2017-08-10 00:30] VITALS: BP 111/59; PULSE 80; RESP 17; TEMP 96.8; O2SAT 98
[2017-08-10] MEDS: LACTATED RINGER'S 1000 ML INJ 1,000 ML IV SCH ×3 (03:57→12:53)
[2017-08-10] MEDS: LEVOTHYROXINE SODIUM 25 MCG TAB PO SCH (05:22)
[2017-08-10 07:43] VITALS: BP 115/71; PULSE 108; RESP 19; TEMP 95.4; O2SAT 99
--- NOTE | 2017-08-10 07:49 | PD.ORT.PN ---
Subjective Post Op Day #: 3 Subjective Remarks POD #3 ORIF left periprosthetic proximal femur fracture Patient is awake alert and sitting upright in a chair. She admits to an episode of dizziness and lightheadedness yesterday afternoon. She admits she 'blacked out' talking on the phone to her sister. She states she felt much better yesterday evening and this AM and has independently sat upright. Pain well control. Admits interest in rehab. Objective Vitals Vital Signs Date Time Temp Pulse Resp B/P (MAP) Pulse Ox O2 Delivery O2 Flow Rate FiO2 08/10/17 00:30 96.8 80 17 111/59 (76) 98 08/09/17 20:30 96.9 116 16 112/64 (80) 99 08/09/17 15:45 97.8 100 19 102/56 (71) 100 08/09/17 11:39 97.0 83 19 109/57 (74) 95 I/O 08/09/17 08/09/17 08/09/17 08/10/17 08/10/17 08/10/17 07:00 15:00 23:00 07:00 15:00 23:00 Intake Total 360 ml 900 ml 360 ml 240 ml Balance 360 ml 900 ml 360 ml 240 ml Intake Oral 360 ml 900 ml 360 ml 240 ml # Voids 2 1 1 1 # Bowel Movements 0 1 0 Result Diagram: 08/08/17 0457 08/06/17 1435 Imaging Last Impressions Femur X-Ray 08/07/17 0000 Signed Impressions: Service Date/Time: Monday, August 07, 2017 12:37 - CONCLUSION: Successful ORIF Aaron Soliman MD Head CT 08/06/17 142 Signed Impressions: Service Date/Time: Sunday, August 06, 2017 15:23 - CONCLUSION: Normal examination for a patient of this age. Jean-Claude Pineda MD Chest X-Ray 08/06/17 142 Signed Impressions: Service Date/Time: Sunday, August 06, 2017 15:03 - CONCLUSION: No acute disease. Jean-Claude Pineda MD Cervical Spine CT 08/06/17 142 Signed Impressions: Service Date/Time: Sunday, August 06, 2017 15:23 - CONCLUSION: 1. No acute bony fracture. 2. Primary degenerative changes, disc degeneration disc space narrowing from C4-C7. 3. Bilateral facet arthritis at multiple levels. Jean-Claude Pineda MD Pelvis X-Ray 08/06/17 0000 Signed Impressions: Service Date/Time: Sunday, August 06, 2017 14:56 - CONCLUSION: No acute fracture or joint dislocation involving the pelvis. Jean-Claude Pineda MD Carotid Artery Ultrasound 08/06/17 0000 Signed Impressions: Service Date/Time: Sunday, August 06, 2017 18:47 - CONCLUSION: 1. No significant atherosclerotic disease or stenosis is identified within either internal carotid artery. 2. There is antegrade flow in both vertebral arteries. Aaron Cardenas MD Procedures ORIF left periprosthetic proximal femur fracture 08/07/17 Objective Remarks LLE: Dressing dry and intact. Tender to palpation with mild swelling around incision site. Appropriate range of motion expected post operatively. Freely able to move distal digits. No calf pain. Negative Juan David's sign. Good cap refill. 2+ pedal pulses. Neurovascular intact. Assessment & Plan Problem List: (1) Periprosthetic fracture around internal prosthetic left hip joint ICD Codes: M97.02XA - Periprosthetic fracture around internal prosthetic left hip joint, initial encounter (2) Syncope ICD Codes: R55 - Syncope and collapse Status: Acute Qualifiers: Qualified Codes: R55 - Syncope and collapse Assessment and Plan POD #3 ORIF left periprosthetic proximal femur fracture Progress rehabilitation, toe-touch weightbearing Monitor postoperative anemia closely - H&H was reordered Daily dressing changes Aspirin 81mg BID for DVT prophylaxis, 20 days Clear for d/c pending H&H results - may require transfusion if levels have lowered. 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 Nichole in approximately 3 weeks Jaimie Angelo Aug 10, 2017 07:49
[2017-08-10] MEDS: SODIUM CHLORIDE 0.9% FLUSH 10 ML FLUSH IV FLUSH SCH ×3 (08:42→21:04)
[2017-08-10] MEDS: RIVAROXABAN 10 MG TAB PO SCH (08:46)
[2017-08-10] MEDS: CALCIUM/VITAMIN D 250 MG/125 U TAB PO SCH ×2 (08:46→21:04)
[2017-08-10] MEDS: DOCUSATE SODIUM 50 MG/SENNA 8.6 MG TAB PO SCH ×2 (08:46→21:04)
[2017-08-10] MEDS: MULTIVITAMINS/MINERALS THERAPEUTIC TAB PO SCH ×2 (08:46→21:04)
[2017-08-10] MEDS: LISINOPRIL 20 MG TAB PO SCH (08:47)
[2017-08-10 09:48] LABS: HEMATOCRIT 28.6 % (35.0-46.0)
[2017-08-10 11:33] VITALS: BP 98/58; PULSE 103; RESP 19; TEMP 98.4; O2SAT 97
[2017-08-10] MEDS: ACETAMINOPHEN 325 MG TAB PO PRN (14:54)
[2017-08-10 15:47] VITALS: BP 96/71; PULSE 96; RESP 19; TEMP 96.8; O2SAT 96
--- NOTE | 2017-08-10 15:48 | HHI.PR ---
Subjective Remarks Follow-up for hip fracture and lightheadedness Patient had an episode of lightheadedness when she went from the bed to the chair. She stated that last for a couple seconds and resolve on its own. Her systolic blood pressure was 98. Patient has not been eating much. Otherwise she denies any chest pain, shortness of breathing, palpitation. She is also asymptomatic. Patient's nurse at the bedside during the interview. Objective Vitals Vital Signs Date Time Temp Pulse Resp B/P (MAP) Pulse Ox O2 Delivery O2 Flow Rate FiO2 08/10/17 11:33 98.4 103 19 98/58 (71) 97 08/10/17 07:43 95.4 108 19 115/71 (86) 99 08/10/17 00:30 96.8 80 17 111/59 (76) 98 08/09/17 20:30 96.9 116 16 112/64 (80) 99 I/O 08/09/17 08/09/17 08/09/17 08/10/17 08/10/17 08/10/17 07:00 15:00 23:00 07:00 15:00 23:00 Intake Total 360 ml 900 ml 360 ml 240 ml 950 ml Balance 360 ml 900 ml 360 ml 240 ml 950 ml Intake Oral 360 ml 900 ml 360 ml 240 ml 950 ml # Voids 2 1 1 1 2 # Bowel Movements 0 1 0 1 Result Diagram: 08/10/17 0934 08/06/17 1435 Objective Remarks GENERAL: in NAD sitting in bed. CARDIOVASCULAR: Regular rate and rhythm without murmurs, gallops, or rubs. RESPIRATORY: Breath sounds equal bilaterally. No accessory muscle use. GASTROINTESTINAL: Abdomen soft, non-tender, nondistended. MUSCULOSKELETAL: left hip in bandages Medications and IVs Current Medications Sodium Chloride (NS Flush) 2 ml UNSCH PRN IVF FLUSH AFTER USING IV ACCESS Last administered on 08/06/17at 14:45; Start 08/06/17 at 14:30; Stop 08/10/17 at 09:54 ; Status DC Acetaminophen (Tylenol) 650 mg ONCE ONCE PO Last administered on 08/06/17at 14: 45; Start 08/06/17 at 14:30; Stop 08/06/17 at 14:31; Status DC Sodium Chloride 500 ml @ 500 mls/hr BOLUS ONCE IV Last administered on 14:44; Start 08/06/17 at 14:30; Stop 08/06/17 at 15:29; Status DC Morphine Sulfate (Morphine Inj) 4 mg ONCE ONCE IV PUSH Last administered on 16:56; Start 08/06/17 at 16:30; Stop 08/06/17 at 16:31; Status DC Sodium Chloride 1,000 ml @ 75 mls/hr [id number] IV Last administered on at 19:43; Start 08/06/17 at 16:28 Sodium Chloride (NS Flush) 2 ml UNSCH PRN IV FLUSH FLUSH AFTER USING IV ACCESS ; Start 08/06/17 at 16:30; Stop 08/10/17 at 09:55; Status DC Sodium Chloride (NS Flush) 2 ml BID IV FLUSH Last administered on 08/08/17at 20: 40; Start 08/06/17 at 21:00; Stop 08/10/17 at 09:55; Status DC Acetaminophen (Tylenol) 650 mg Q4H PRN PO TEMP > 100.4 Last administered on at 14:54; Start 08/06/17 at 16:30 Ondansetron HCl (Zofran Inj) 4 mg Q6H PRN IVP NAUSEA OR VOMITING; Start at 16:30 Naloxone HCl (Narcan Inj) 0.4 mg UNSCH PRN IV PUSH SEE LABEL COMMENTS; Start at 16:30 Magnesium Hydroxide (Milk Of Magnesia Liq) 30 ml Q12H PRN PO Mild constipation Last administered on 08/09/17at 08:30; Start 08/06/17 at 16:30 Levothyroxine Sodium (Synthroid) 25 mcg DAILY@0600 PO Last administered on 08/10at 05:22; Start 08/07/17 at 06:00 Lisinopril (Prinivil) 20 mg DAILY PO Last administered on 08/08/17at 08:54; Start 08/07/17 at 09:00 Calcium/Vitamin D (Oscal-D 250-125) 250 mg BID PO Last administered on at 08:46; Start 08/06/17 at 21:00 Heparin Sodium (Porcine) (Heparin Inj) 5,000 units Q8HR SQ ; Start 08/06/17 at 22:00; Stop 08/08/17 at 14:05; Status DC Acetaminophen/ Hydrocodone Bitart ([place] 5-325 Mg) 1 tab Q4H PRN PO pain 1-7 Last administered on 08/09/17at 08:31; Start 08/06/17 at 17:45 Acetaminophen/ Hydrocodone Bitart ([place] 5-325 Mg) 2 tab Q4H PRN PO pain 8-10 Last administered on 08/07/17at 05:35; Start 08/06/17 at 17:45 Lactated Ringer's 1,000 ml @ 30 mls/hr Q24H PRN IV SEE LABEL COMMENTS; Start at 03:45; Stop 08/10/17 at 03:44; Status DC Metoprolol Tartrate (Lopressor) 25 mg TRAINING PROGRAM ASSISTANT PRN PO SEE LABEL COMMENTS; Start 08/07/17 at 03:45; Stop 08/10/17 at 03:44; Status DC Povidone Iodine (Betadine 5% Antisepsis Kit) 1 applic TRAINING PROGRAM ASSISTANT PRN EACH NARE SEE LABEL COMMENTS; Start 08/07/17 at 03:45; Stop 08/10/17 at 03:44; Status DC Chlorhexidine Gluconate (Chlorhexidine 2% Cloth) 3 pack TRAINING PROGRAM ASSISTANT PRN TOPICAL SEE LABEL COMMENTS; Start 08/07/17 at 03:45; Stop 08/10/17 at 03:44; Status DC Cefazolin Sodium/ Dextrose 50 ml @ 100 mls/hr TRAINING PROGRAM ASSISTANT IV Last administered on 08/07/17at 10:00; Start 08/07/17 at 05:30; Stop 08/10/17 at 05:29; Status DC Vancomycin HCl 1000 mg/Sodium Chloride 250 ml @ 250 mls/hr TRAINING PROGRAM ASSISTANT IV Last administered on 08/07/17at 10:10; Start 08/07/17 at 05:30; Stop 08/10/17 at 05:29 ; Status DC Tranexamic Acid 1000 mg/Sodium Chloride 110 ml @ 200 mls/hr ONCE IV Last administered on 08/07/17at 10:00; Start 08/07/17 at 08:00; Stop 08/07/17 at 21:00 ; Status DC Gentamicin Sulfate (Gentamicin Inj) 240 mg STK-MED ONCE .ROUTE ; Start 08/07/17 at 07:38; Stop 08/07/17 at 07:39; Status DC Gentamicin Sulfate (Gentamicin Inj) 240 mg STK-MED ONCE .ROUTE Last administered on 08/07/17at 10:42; Start 08/07/17 at 09:21; Stop 08/07/17 at 09:22 ; Status DC Acetaminophen 100 ml @ As Directed STK-MED ONCE IV ; Start 08/07/17 at 09:37; Stop 08/07/17 at 09:38; Status DC Fentanyl Citrate (fentaNYL INJ) 200 mcg STK-MED ONCE .ROUTE ; Start 08/07/17 at 09:38; Stop 08/07/17 at 09:39; Status DC Midazolam HCl (Versed Inj) 2 mg STK-MED ONCE .ROUTE ; Start 08/07/17 at 09:38; Stop 08/07/17 at 09:39; Status DC Oxymetazoline HCl (Afrin 0.05% Juan Ramon [place]) 15 spray STK-MED ONCE .ROUTE ; Start 08/07/17 at 12:36; Stop 08/07/17 at 12:37; Status DC Morphine Sulfate (*morphine INJ PERIprocedure ONLY) 8 mg STK-MED ONCE .ROUTE Last administered on 08/07/17at 13:36; Start 08/07/17 at 13:35; Stop 08/07/17 at 13:36; Status DC Lactated Ringer's 1,000 ml @ 80 mls/hr [id number] IV Last administered on at 12:53; Start 08/07/17 at 13:27 Sodium Chloride (NS Flush) 2 ml UNSCH PRN IV FLUSH FLUSH AFTER USING IV ACCESS ; Start 08/07/17 at 13:30 Sodium Chloride (NS Flush) 2 ml BID IV FLUSH Last administered on 08/10/17at 08: 49; Start 08/07/17 at 21:00 Cefazolin Sodium/ Dextrose 50 ml @ 100 mls/hr Q6H IV Last administered on 08/08at 00:50; Start 08/07/17 at 14:00; Stop 08/08/17 at 02:29; Status DC Miscellaneous Information (Post-op Orders (for Pharmacy)) STAT ONCE XX ; Start 08/07/17 at 13:30; Stop 08/07/17 at 13:56; Status DC Rivaroxaban (Xarelto) 10 mg DAILY PO Last administered on 08/10/17at 08:46; Start 08/08/17 at 01:00 Miscellaneous Information UNSCH PRN XX SEE LABEL COMMENTS; Start 08/07/17 at 13:30 Miscellaneous Medication ([facility] [place] [place] Pharmacy Information) ONCE ONCE XX ; Start at 13:30; Stop 08/07/17 at 13:44; Status DC Morphine Sulfate (Morphine Inj) 4 mg Q3H PRN IV PUSH Pain >7 when off DIRECTOR RADIO; Start 08/07/17 at 13:30 Oxycodone/ Acetaminophen (Percocet 5-325 Mg) 1 tab Q4H PRN PO PAIN LESS THAN 5 ON SCALE; Start 08/07/17 at 13:30 Oxycodone/ Acetaminophen (Percocet 5-325 Mg) 2 tab Q4H PRN PO PAIN SCALE 5 TO 10; Start 08/07/17 at 13:30 Acetaminophen (Tylenol) 650 mg Q6H PRN PO TEMPERATURE > 101 F; Start 08/07/17 at 13:30 Tranexamic Acid 1000 mg/Sodium Chloride 110 ml @ 200 mls/hr UNSCH IV Last administered on 08/07/17at 14:47; Start 08/07/17 at 14:00; Stop 08/07/17 at 20:00 ; Status DC Multivitamins/ Minerals Therapeutic (Theragran M Tab) 1 tab BID PO Last administered on 08/10/17at 08:46; Start 08/08/17 at 21:00; Stop 10/07/17 at 20:59 Ondansetron HCl (Zofran Inj) 4 mg Q6H PRN IVP NAUSEA OR VOMITING; Start at 13:30 Al Hydrox/Mg Hydrox/Simethicone (Mag-Al Plus Susp Liq) 30 ml Q6H PRN PO INDIGESTION; Start 08/07/17 at 13:30 Povidone Iodine (Betadine 10% Top Soln) 30 applic UNSCH X1 PRN TOPICAL WOUND CARE; Start 08/07/17 at 13:30; Stop 08/09/17 at 13:29; Status DC Senna/Docusate Sodium (Lashell-Colace) 1 tab BID PO Last administered on at 08:46; Start 08/07/17 at 21:00 Magnesium Hydroxide (Milk Of Magnesia Liq) 30 ml Q12H PRN PO Mild constipation ; Start 08/07/17 at 13:30 Sennosides (Senokot) 17.2 mg Q12H PRN PO Moderate constipation; Start 08/07/17 at 13:30 Bisacodyl (Dulcolax Supp) 10 mg DAILY PRN RECTAL SEVERE CONSITIPATION; Start at 13:30 Lactulose (Lactulose Liq) 30 ml DAILY PRN PO SEVERE CONSITIPATION; Start at 13:30 Naloxone HCl (Narcan Inj) 0.4 mg UNSCH PRN IV PUSH RESPIRATORY RATE LESS THAN 10; Start 08/07/17 at 13:30; Stop 08/08/17 at 13:26; Status DC Morphine Sulfate (Morphine 1 Mg/ ml DIRECTOR RADIO) 30 mg UNSCH IV Last administered on at 15:15; Start 08/07/17 at 13:30; Stop 08/08/17 at 13:26; Status DC DIRECTOR RADIO Dosage Infused (Pha) 1 Q8HR .XX Last administered on 08/08/17at 05:29; Start 08/07/17 at 14:00; Stop 08/08/17 at 13:26; Status DC Morphine Sulfate (*morphine INJ PERIprocedure ONLY) 8 mg STK-MED ONCE .ROUTE Last administered on 08/07/17at 13:49; Start 08/07/17 at 13:45; Stop 08/07/17 at 13:46; Status DC Miscellaneous Information ALL NURSING DEPARTME... UNSCH PRN .XX SEE LABEL COMMENTS; Start 08/07/17 at 14:15; Stop 08/08/17 at 14:14; Status DC Morphine Sulfate (*morphine INJ PERIprocedure ONLY) 8 mg STK-MED ONCE .ROUTE Last administered on 08/07/17at 14:18; Start 08/07/17 at 14:17; Stop 08/07/17 at 14:18; Status DC Lactated Ringer's 1,000 ml @ As Directed STK-MED ONCE IV ; Start 08/07/17 at 12 :00; Stop 08/08/17 at 12:27; Status DC Sodium Chloride 250 ml @ As Directed STK-MED ONCE IV ; Start 08/07/17 at 12:00 ; Stop 08/08/17 at 12:27; Status DC Lidocaine HCl (Xylocaine-Mpf 1% Inj) 10 ml STK-MED ONCE OTHER ; Start 08/07/17 at 12:00; Stop 08/08/17 at 12:27; Status DC Phenylephrine HCl (Neosynephrine/ NS 1000 Mcg/10ml Syr) 1,000 mcg STK-MED ONCE IV ; Start 08/07/17 at 12:00; Stop 08/08/17 at 12:27; Status DC Ephedrine Sulfate (ePHEDrine/NS 25 MG/5 ML SYR) 25 mg STK-MED ONCE IV ; Start at 12:00; Stop 08/08/17 at 12:27; Status DC Dexamethasone Sodium Phosphate (Decadron Inj) 4 mg STK-MED ONCE IV ; Start 08/07 at 12:00; Stop 08/08/17 at 12:27; Status DC Ondansetron HCl (Zofran Inj) 4 mg STK-MED ONCE IV ; Start 08/07/17 at 12:00; Stop 08/08/17 at 12:27; Status DC Propofol (Diprivan 200 Mg/20 ml Inj) 200 mg STK-MED ONCE IV ; Start 08/07/17 at 12:00; Stop 08/08/17 at 12:27; Status DC A/P Assessment and Plan This is a 66-year-old female presented with a syncopal episode and left hip pain after fall Syncope -Most likely vasovagal. Labs reviewed negative. Troponin negative. EKG not impressive. Carotid ultrasound reviewed negative. Echo reviewed EF is 50-55%. Lightheadedness -May be secondary to hypotension due to decrease oral intake. Will give IV fluids and encourage oral intake. Left hip fracture -Dr. Nichole consulted appreciate with assistance. -s/p ORIF left periprosthetic proximal femur fracture on 08/[address] Nichole. -Per Ortho progress rehabilitation, toe-touch weightbearing, monitor postoperative anemia closely, daily dressing changes, aspirin 81mg BID for DVT prophylaxis, 20 days. Rehabilitation RN to [facility] postoperative day 8, 08/15/2017 Follow-up with Dr. Nichole in approximately 3 weeks Hypertension/status post gastric bypass surgery/OA -Continue home medication. DVT prophylaxis -Heparin Discharge Planning Patient does not meet criteria for [facility]. Most likely if lightheadedness resolves and bed available can be discharged tomorrow to SNF. Bruna Morel MD Aug 10, 2017 15:48
[2017-08-10] MEDS ORDERED: SODIUM CHLOR 0.9% 1000 ML INJ 1,000 ML IV ONE (16:00)
[2017-08-10] MEDS: SODIUM CHLOR 0.9% 1000 ML INJ 1,000 ML IV SCH (16:33)
[2017-08-10 17:25] VITALS: BP 118/62
[2017-08-10 20:19] VITALS: BP 106/65; PULSE 114; RESP 16; TEMP 97.1; O2SAT 99
[2017-08-11] VITALS (7 sets, daily range): BP systolic 98–143; BP diastolic 61–73; PULSE 78–101; RESP 16–19; TEMP 96.9–98.6; O2SAT 94–100
[2017-08-11] MEDS: SODIUM CHLOR 0.9% 1000 ML INJ 1,000 ML IV SCH (02:00)
[2017-08-11] MEDS: LEVOTHYROXINE SODIUM 25 MCG TAB PO SCH (05:38)
[2017-08-11] MEDS: ACETAMINOPHEN 325 MG TAB PO PRN ×2 (06:37→17:55)
[2017-08-11] MEDS: CALCIUM/VITAMIN D 250 MG/125 U TAB PO SCH ×2 (07:52→21:47)
[2017-08-11] MEDS: RIVAROXABAN 10 MG TAB PO SCH (07:54)
[2017-08-11] MEDS: DOCUSATE SODIUM 50 MG/SENNA 8.6 MG TAB PO SCH ×2 (07:54→21:47)
[2017-08-11] MEDS: MULTIVITAMINS/MINERALS THERAPEUTIC TAB PO SCH ×2 (07:54→21:47)
--- NOTE | 2017-08-11 08:43 | PD.ORT.PN ---
Subjective Subjective Remarks POD #4 ORIF left periprosthetic proximal femur fracture Patient is awake alert and sitting upright in bed. Admits to one episode of lightheadedness yesterday evening. She feels much better after IV fluids. Pain well control. Admits interest in rehab. She feels ready for d/c once she works with PT. Objective Vitals Vital Signs Date Time Temp Pulse Resp B/P (MAP) Pulse Ox O2 Delivery O2 Flow Rate FiO2 08/11/17 07:33 97.0 86 19 107/69 (82) 98 08/11/17 05:44 98.6 91 18 113/69 (84) 100 08/11/17 02:07 97.6 101 16 105/68 (80) 99 08/10/17 21:04 Room Air 08/10/17 20:19 97.1 114 16 106/65 (79) 99 08/10/17 17:25 118/62 (80) 08/10/17 16:14 16 08/10/17 15:47 96.8 96 19 96/71 (79) 96 08/10/17 11:33 98.4 103 19 98/58 (71) 97 I/O 08/10/17 08/10/17 08/10/17 08/11/17 08/11/17 08/11/17 07:00 15:00 23:00 07:00 15:00 23:00 Intake Total 240 ml 950 ml 2514 ml Output Total 600 ml Balance 240 ml 950 ml 1914 ml Intake Oral 240 ml 950 ml 480 ml IV Total 2034 ml Output Urine Total 600 ml # Voids 1 2 # Bowel Movements 0 1 2 Result Diagram: 08/10/17 0934 Imaging Last Impressions Femur X-Ray 08/07/17 0000 Signed Impressions: Service Date/Time: Monday, August 07, 2017 12:37 - CONCLUSION: Successful ORIF Aaron Soliman MD Head CT 08/06/17 1423 Signed Impressions: Service Date/Time: Sunday, August 06, 2017 15:23 - CONCLUSION: Normal examination for a patient of this age. Jean-Claude Pineda MD Chest X-Ray 08/06/17 1423 Signed Impressions: Service Date/Time: Sunday, August 06, 2017 15:03 - CONCLUSION: No acute disease. Jean-Claude Pineda MD Cervical Spine CT 08/06/17 1423 Signed Impressions: Service Date/Time: Sunday, August 06, 2017 15:23 - CONCLUSION: 1. No acute bony fracture. 2. Primary degenerative changes, disc degeneration disc space narrowing from C4-C7. 3. Bilateral facet arthritis at multiple levels. Jean-Claude Pineda MD Pelvis X-Ray 08/06/17 0000 Signed Impressions: Service Date/Time: Sunday, August 06, 2017 14:56 - CONCLUSION: No acute fracture or joint dislocation involving the pelvis. Jean-Claude Pineda MD Carotid Artery Ultrasound 08/06/17 0000 Signed Impressions: Service Date/Time: Sunday, August 06, 2017 18:47 - CONCLUSION: 1. No significant atherosclerotic disease or stenosis is identified within either internal carotid artery. 2. There is antegrade flow in both vertebral arteries. Aaron Cardenas MD Procedures ORIF left periprosthetic proximal femur fracture 08/07/17 Objective Remarks LLE: Dressing dry and intact. Tender to palpation with mild swelling around incision site. Appropriate range of motion expected post operatively. Freely able to move distal digits. No calf pain. Negative Juan David's sign. Good cap refill. 2+ pedal pulses. Neurovascular intact. Assessment & Plan Problem List: (1) Periprosthetic fracture around internal prosthetic left hip joint ICD Codes: M97.02XA - Periprosthetic fracture around internal prosthetic left hip joint, initial encounter (2) Syncope ICD Codes: R55 - Syncope and collapse Status: Acute Qualifiers: Qualified Codes: R55 - Syncope and collapse Assessment and Plan POD #4 ORIF left periprosthetic proximal femur fracture Progress rehabilitation, toe-touch weightbearing Work with PT prior to d/c. H&H stable Daily dressing changes Aspirin 81mg BID for DVT prophylaxis, 20 days Clear for d/c from an orthopedic standpoint. size cutter to [facility] postoperative day 8, 08/15/2017 Follow-up with Dr. Nichole in approximately 3 weeks Jaimie Angelo Aug 11, 2017 08:43
[2017-08-11] MEDS: LISINOPRIL 20 MG TAB PO SCH (09:00)
[2017-08-11] MEDS: SODIUM CHLORIDE 0.9% FLUSH 10 ML FLUSH IV FLUSH SCH ×2 (09:00→21:47)
[2017-08-11] MEDS ORDERED: XARE10TA PO (10:48)
[2017-08-11] MEDS ORDERED: HYDR-3516 PO (10:48)
--- NOTE | 2017-08-11 12:12 | HHI.PR ---
Subjective Remarks in no acute distress. pain is controlled. she says that ' she almost passed out earlier today'. she denies chest pain or sob. d/w the RN. Objective Vitals Vital Signs Date Time Temp Pulse Resp B/P (MAP) Pulse Ox O2 Delivery O2 Flow Rate FiO2 08/11/17 11:44 98.1 88 19 143/73 (96) 99 08/11/17 07:33 97.0 86 19 107/69 (82) 98 08/11/17 05:44 98.6 91 18 113/69 (84) 100 08/11/17 02:07 97.6 101 16 105/68 (80) 99 08/10/17 21:04 Room Air 08/10/17 20:19 97.1 114 16 106/65 (79) 99 08/10/17 17:25 118/62 (80) 08/10/17 16:14 16 08/10/17 15:47 96.8 96 19 96/71 (79) 96 I/O 08/10/17 08/10/17 08/10/17 08/11/17 08/11/17 08/11/17 07:00 15:00 23:00 07:00 15:00 23:00 Intake Total 240 ml 950 ml 2514 ml Output Total 600 ml Balance 240 ml 950 ml 1914 ml Intake Oral 240 ml 950 ml 480 ml IV Total 2034 ml Output Urine Total 600 ml # Voids 1 2 # Bowel Movements 0 1 2 Result Diagram: 08/10/17 0934 Imaging Last Impressions Femur X-Ray 08/07/17 0000 Signed Impressions: Service Date/Time: Monday, August 07, 2017 12:37 - CONCLUSION: Successful ORIF Aaron Soliman MD Head CT 08/06/17 142 Signed Impressions: Service Date/Time: Sunday, August 06, 2017 15:23 - CONCLUSION: Normal examination for a patient of this age. Jean-Claude Pineda MD Chest X-Ray [id number] Signed Impressions: Service Date/Time: Sunday, August 06, 2017 15:03 - CONCLUSION: No acute disease. Jean-Claude Pineda MD Cervical Spine CT [id number] Signed Impressions: Service Date/Time: Sunday, August 06, 2017 15:23 - CONCLUSION: 1. No acute bony fracture. 2. Primary degenerative changes, disc degeneration disc space narrowing from C4-C7. 3. Bilateral facet arthritis at multiple levels. Jean-Claude Pineda MD Pelvis X-Ray 08/06/17 0000 Signed Impressions: Service Date/Time: Sunday, August 06, 2017 14:56 - CONCLUSION: No acute fracture or joint dislocation involving the pelvis. Jean-Claude Pineda MD Carotid Artery Ultrasound 08/06/17 0000 Signed Impressions: Service Date/Time: Sunday, August 06, 2017 18:47 - CONCLUSION: 1. No significant atherosclerotic disease or stenosis is identified within either internal carotid artery. 2. There is antegrade flow in both vertebral arteries. Aaron Cardenas MD Objective Remarks GENERAL: This is a well-nourished, well-developed patient, in no apparent distress. CARDIOVASCULAR: Regular rate and regular rhythm without murmurs, gallops, or rubs. RESPIRATORY: Clear to auscultation. Breath sounds equal bilaterally. No wheezes , rales, or rhonchi. GASTROINTESTINAL: Abdomen soft, non-tender, nondistended. Normal, active bowel sounds MUSCULOSKELETAL: Extremities without clubbing, cyanosis, or edema. NEURO: Alert & Oriented x4 to person, place, time, situation. Moves all ext x4 Medications and IVs Inpatient Medications Acetaminophen (Tylenol) 650 mg Q6H PRN PO TEMPERATURE > 101 F; Start 08/07/17 at 13:30 Acetaminophen/ Hydrocodone Bitart ([place] 5-325 Mg) 2 tab Q4H PRN PO pain 8-10 Last administered on 08/07/17at 05:35; Start 08/06/17 at 17:45 Al Hydrox/Mg Hydrox/Simethicone (Mag-Al Plus Susp Liq) 30 ml Q6H PRN PO INDIGESTION; Start 08/07/17 at 13:30 Bisacodyl (Dulcolax Supp) 10 mg DAILY PRN RECTAL SEVERE CONSITIPATION; Start at 13:30 Calcium/Vitamin D (Oscal-D 250-125) 250 mg BID PO Last administered on at 07:52; Start 08/06/17 at 21:00 Cefazolin Sodium/ Dextrose 50 ml @ 100 mls/hr Q6H IV Last administered on 08/08at 00:50; Start 08/07/17 at 14:00; Stop 08/08/17 at 02:29; Status DC Chlorhexidine Gluconate (Chlorhexidine 2% Cloth) 3 pack SENIOR ANALYST PROGRAMMER PRN TOPICAL SEE LABEL COMMENTS; Start 08/07/17 at 03:45; Stop 08/10/17 at 03:44; Status DC Heparin Sodium (Porcine) (Heparin Inj) 5,000 units Q8HR SQ ; Start 08/06/17 at 22:00; Stop 08/08/17 at 14:05; Status DC Lactated Ringer's 1,000 ml @ 80 mls/hr [id number] IV Last administered on at 12:53; Start 08/07/17 at 13:27; Stop 08/10/17 at 15:47; Status DC Lactulose (Lactulose Liq) 30 ml DAILY PRN PO SEVERE CONSITIPATION; Start at 13:30 Levothyroxine Sodium (Synthroid) 25 mcg DAILY@0600 PO Last administered on at 05:38; Start 08/07/17 at 06:00 Lisinopril (Prinivil) 20 mg DAILY PO Last administered on 08/08/17at 08:54; Start 08/07/17 at 09:00 Magnesium Hydroxide (Milk Of Magnesia Liq) 30 ml Q12H PRN PO Mild constipation ; Start 08/07/17 at 13:30 Metoprolol Tartrate (Lopressor) 25 mg SENIOR ANALYST PROGRAMMER PRN PO SEE LABEL COMMENTS; Start 08/07/17 at 03:45; Stop 08/10/17 at 03:44; Status DC Miscellaneous Information ALL NURSING DEPARTME... UNSCH PRN .XX SEE LABEL COMMENTS; Start 08/07/17 at 14:15; Stop 08/08/17 at 14:14; Status DC Miscellaneous Information (Post-op Orders (for Pharmacy)) STAT ONCE XX ; Start 08/07/17 at 13:30; Stop 08/07/17 at 13:56; Status DC Miscellaneous Medication ([facility] [place] Information) ONCE ONCE XX ; Start at 13:30; Stop 08/07/17 at 13:44; Status DC Morphine Sulfate (Morphine 1 Mg/ ml ACCOUNT DIRECTOR) 30 mg UNSCH IV Last administered on at 15:15; Start 08/07/17 at 13:30; Stop 08/08/17 at 13:26; Status DC Morphine Sulfate (Morphine Inj) 4 mg Q3H PRN IV PUSH Pain >7 when off ACCOUNT DIRECTOR; Start 08/07/17 at 13:30 Multivitamins/ Minerals Therapeutic (Theragran M Tab) 1 tab BID PO Last administered on 08/11/17at 07:54; Start 08/08/17 at 21:00; Stop 10/07/17 at 20:59 Naloxone HCl (Narcan Inj) 0.4 mg UNSCH PRN IV PUSH RESPIRATORY RATE LESS THAN 10; Start 08/07/17 at 13:30; Stop 08/08/17 at 13:26; Status DC Ondansetron HCl (Zofran Inj) 4 mg Q6H PRN IVP NAUSEA OR VOMITING; Start at 13:30 Oxycodone/ Acetaminophen (Percocet 5-325 Mg) 2 tab Q4H PRN PO PAIN SCALE 5 TO 10; Start 08/07/17 at 13:30 ACCOUNT DIRECTOR Dosage Infused (Pha) 1 Q8HR .XX Last administered on 08/08/17at 05:29; Start 08/07/17 at 14:00; Stop 08/08/17 at 13:26; Status DC Povidone Iodine (Betadine 10% Top Soln) 30 applic UNSCH X1 PRN TOPICAL WOUND CARE; Start 08/07/17 at 13:30; Stop 08/09/17 at 13:29; Status DC Povidone Iodine (Betadine 5% Antisepsis Kit) 1 applic SENIOR ANALYST PROGRAMMER PRN EACH NARE SEE LABEL COMMENTS; Start 08/07/17 at 03:45; Stop 08/10/17 at 03:44; Status DC Rivaroxaban (Xarelto) 10 mg DAILY PO Last administered on 08/11/17at 07:54; Start 08/08/17 at 01:00 Senna/Docusate Sodium ([place]-Colace) 1 tab BID PO Last administered on 08/11/17at 07:54; Start 08/07/17 at 21:00 Sennosides (Senokot) 17.2 mg Q12H PRN PO Moderate constipation; Start 08/07/17 at 13:30 Sodium Chloride 1,000 ml @ 999 mls/hr BOLUS ONCE IV Last administered on 08/10at 16:33; Start 08/10/17 at 16:00; Stop 08/10/17 at 17:00; Status DC Sodium Chloride (NS Flush) 2 ml BID IV FLUSH Last administered on 08/11/17at 09: 00; Start 08/07/17 at 21:00 Tranexamic Acid 1000 mg/Sodium Chloride 110 ml @ 200 mls/hr UNSCH IV Last administered on 08/07/17at 14:47; Start 08/07/17 at 14:00; Stop 08/07/17 at 20:00 ; Status DC Vancomycin HCl 1000 mg/Sodium Chloride 250 ml @ 250 mls/hr SENIOR ANALYST PROGRAMMER IV Last administered on 08/07/17at 10:10; Start 08/07/17 at 05:30; Stop 08/10/17 at 05:29 ; Status DC A/P Assessment and Plan Syncope -Most likely vasovagal. Labs reviewed negative. Troponin negative. EKG not impressive. Carotid ultrasound reviewed negative. Echo reviewed EF is 50-55%. Lightheadedness -May be secondary to hypotension . received IV fluid. Left hip fracture -Dr. Nichole consulted appreciate with assistance. -s/p ORIF left periprosthetic proximal femur fracture on 08/[address] Nichole. -Per Ortho progress rehabilitation, toe-touch weightbearing, monitor postoperative anemia closely, daily dressing changes, aspirin 81mg BID for DVT prophylaxis, 20 days. Rehabilitation RN to [facility] postoperative day 8, 08/15/2017 Follow-up with Dr. Nichole in approximately 3 weeks Hypertension/status post gastric bypass surgery/OA -BP low at times- with lightheadedness- will hold lisinopril. DVT prophylaxis -Heparin Discharge Planning will observe on telemetry for another 24 hrs. d/w the patient and RN. Ce Dior MD Aug 11, 2017 12:12
[2017-08-12] VITALS: PULSE 96
[2017-08-12] MEDS: ACETAMINOPHEN 325 MG TAB PO PRN ×3 (00:07→16:08)
[2017-08-12 00:30] VITALS: BP 131/78; PULSE 93; RESP 18; TEMP 97.4; O2SAT 96
[2017-08-12 04:07] VITALS: PULSE 73
[2017-08-12 04:10] VITALS: BP 122/74; PULSE 93; RESP 18; TEMP 96.7; O2SAT 99
[2017-08-12] MEDS: LEVOTHYROXINE SODIUM 25 MCG TAB PO SCH (05:02)
[2017-08-12 08:00] VITALS: BP 124/74; PULSE 97; RESP 18; TEMP 96.3; O2SAT 100
[2017-08-12] MEDS: MULTIVITAMINS/MINERALS THERAPEUTIC TAB PO SCH (09:04)
[2017-08-12] MEDS: CALCIUM/VITAMIN D 250 MG/125 U TAB PO SCH (09:04)
[2017-08-12] MEDS: RIVAROXABAN 10 MG TAB PO SCH (09:04)
[2017-08-12] MEDS: DOCUSATE SODIUM 50 MG/SENNA 8.6 MG TAB PO SCH (09:04)
[2017-08-12] MEDS: SODIUM CHLORIDE 0.9% FLUSH 10 ML FLUSH IV FLUSH SCH (09:08)
[2017-08-12 12:00] VITALS: BP 123/72; PULSE 90; PULSE 98; RESP 18; TEMP 97.2; O2SAT 100
--- NOTE | 2017-08-12 12:28 | HHI.PR ---
Subjective Remarks in no acute distress. looks and feels better today. pain is better. no further syncopal episode. d/w the RN and no acute issues over night. Objective Vitals Vital Signs Date Time Temp Pulse Resp B/P (MAP) Pulse Ox O2 Delivery O2 Flow Rate FiO2 08/12/17 08:00 96.3 97 18 124/74 (91) 100 08/12/17 04:10 96.7 93 18 122/74 (90) 99 08/12/17 04:07 73 08/12/17 00:30 97.4 93 18 131/78 (95) 96 08/12/17 00:00 96 08/11/17 20:51 78 08/11/17 20:30 98.4 84 17 98/61 (73) 94 08/11/17 15:31 96.9 96 19 124/66 (85) 98 I/O 08/11/17 08/11/17 08/11/17 08/12/17 08/12/17 08/12/17 07:00 15:00 23:00 07:00 15:00 23:00 Intake Total 2514 ml 950 ml 480 ml Output Total 600 ml 2 ml Balance 1914 ml 950 ml 478 ml Intake Oral 480 ml 950 ml 480 ml IV Total 2034 ml Output Urine Total 600 ml 2 ml # Voids 1 # Bowel Movements 2 0 Result Diagram: 08/10/17 0934 Imaging Last Impressions Femur X-Ray 08/07/17 0000 Signed Impressions: Service Date/Time: Monday, August 07, 2017 12:37 - CONCLUSION: Successful ORIF Aaron Soliman MD Head CT 08/06/17 142 Signed Impressions: Service Date/Time: Sunday, August 06, 2017 15:23 - CONCLUSION: Normal examination for a patient of this age. Jean-Claude Pineda MD Chest X-Ray 08/06/17 1423 Signed Impressions: Service Date/Time: Sunday, August 06, 2017 15:03 - CONCLUSION: No acute disease. Jean-Claude Pineda MD Cervical Spine CT 08/06/17 142 Signed Impressions: Service Date/Time: Sunday, August 06, 2017 15:23 - CONCLUSION: 1. No acute bony fracture. 2. Primary degenerative changes, disc degeneration disc space narrowing from C4-C7. 3. Bilateral facet arthritis at multiple levels. Jean-Claude Pineda MD Pelvis X-Ray 08/06/17 0000 Signed Impressions: Service Date/Time: Sunday, August 06, 2017 14:56 - CONCLUSION: No acute fracture or joint dislocation involving the pelvis. Jean-Claude Pineda MD Carotid Artery Ultrasound 08/06/17 0000 Signed Impressions: Service Date/Time: Sunday, August 06, 2017 18:47 - CONCLUSION: 1. No significant atherosclerotic disease or stenosis is identified within either internal carotid artery. 2. There is antegrade flow in both vertebral arteries. Aaron Cardenas MD Objective Remarks GENERAL: This is a well-nourished, well-developed patient, in no apparent distress. CARDIOVASCULAR: Regular rate and regular rhythm without murmurs, gallops, or rubs. RESPIRATORY: Clear to auscultation. Breath sounds equal bilaterally. No wheezes , rales, or rhonchi. GASTROINTESTINAL: Abdomen soft, non-tender, nondistended. Normal, active bowel sounds MUSCULOSKELETAL: Extremities without clubbing, cyanosis, or edema. NEURO: Alert & Oriented x4 to person, place, time, situation. Moves all ext x4 Medications and IVs Inpatient Medications Acetaminophen (Tylenol) 650 mg Q6H PRN PO TEMPERATURE > 101 F; Start 08/07/17 at 13:30 Acetaminophen/ Hydrocodone Bitart ([place] 5-325 Mg) 2 tab Q4H PRN PO pain 8-10 Last administered on 08/07/17at 05:35; Start 08/06/17 at 17:45 Al Hydrox/Mg Hydrox/Simethicone (Mag-Al Plus Susp Liq) 30 ml Q6H PRN PO INDIGESTION; Start 08/07/17 at 13:30 Bisacodyl (Dulcolax Supp) 10 mg DAILY PRN RECTAL SEVERE CONSITIPATION; Start at 13:30 Calcium/Vitamin D (Oscal-D 250-125) 250 mg BID PO Last administered on at 09:04; Start 08/06/17 at 21:00 Cefazolin Sodium/ Dextrose 50 ml @ 100 mls/hr Q6H IV Last administered on 08/08at 00:50; Start 08/07/17 at 14:00; Stop 08/08/17 at 02:29; Status DC Chlorhexidine Gluconate (Chlorhexidine 2% Cloth) 3 pack DEAN PRN TOPICAL SEE LABEL COMMENTS; Start 08/07/17 at 03:45; Stop 08/10/17 at 03:44; Status DC Heparin Sodium (Porcine) (Heparin Inj) 5,000 units Q8HR SQ ; Start 08/06/17 at 22:00; Stop 08/08/17 at 14:05; Status DC Lactated Ringer's 1,000 ml @ 80 mls/hr [id number] IV Last administered on at 12:53; Start 08/07/17 at 13:27; Stop 08/10/17 at 15:47; Status DC Lactulose (Lactulose Liq) 30 ml DAILY PRN PO SEVERE CONSITIPATION; Start at 13:30 Levothyroxine Sodium (Synthroid) 25 mcg DAILY@0600 PO Last administered on at 05:02; Start 08/07/17 at 06:00 Lisinopril (Prinivil) 20 mg DAILY PO Last administered on 08/08/17at 08:54; Start 08/07/17 at 09:00; Status Future Hold Magnesium Hydroxide (Milk Of Magnesia Liq) 30 ml Q12H PRN PO Mild constipation ; Start 08/07/17 at 13:30 Metoprolol Tartrate (Lopressor) 25 mg DEAN PRN PO SEE LABEL COMMENTS; Start 08/07/17 at 03:45; Stop 08/10/17 at 03:44; Status DC Miscellaneous Information ALL NURSING DEPARTME... UNSCH PRN .XX SEE LABEL COMMENTS; Start 08/07/17 at 14:15; Stop 08/08/17 at 14:14; Status DC Miscellaneous Information (Post-op Orders (for Pharmacy)) STAT ONCE XX ; Start 08/07/17 at 13:30; Stop 08/07/17 at 13:56; Status DC Miscellaneous Medication ([facility] Information) ONCE ONCE XX ; Start at 13:30; Stop 08/07/17 at 13:44; Status DC Morphine Sulfate (Morphine 1 Mg/ ml GRAY MIXING OPERATOR) 30 mg UNSCH IV Last administered on at 15:15; Start 08/07/17 at 13:30; Stop 08/08/17 at 13:26; Status DC Morphine Sulfate (Morphine Inj) 4 mg Q3H PRN IV PUSH Pain >7 when off GRAY MIXING OPERATOR; Start 08/07/17 at 13:30 Multivitamins/ Minerals Therapeutic (Theragran M Tab) 1 tab BID PO Last administered on 08/12/17 09:04; Start 08/08/17 at 21:00; Stop 10/07/17 at 20:59 Naloxone HCl (Narcan Inj) 0.4 mg UNSCH PRN IV PUSH RESPIRATORY RATE LESS THAN 10; Start 08/07/17 at 13:30; Stop 08/08/17 at 13:26; Status DC Ondansetron HCl (Zofran Inj) 4 mg Q6H PRN IVP NAUSEA OR VOMITING; Start at 13:30 Oxycodone/ Acetaminophen (Percocet 5-325 Mg) 2 tab Q4H PRN PO PAIN SCALE 5 TO 10; Start 08/07/17 at 13:30 GRAY MIXING OPERATOR Dosage Infused (Pha) 1 Q8HR .XX Last administered on 08/08/17at 05:29; Start 08/07/17 at 14:00; Stop 08/08/17 at 13:26; Status DC Povidone Iodine (Betadine 10% Top Soln) 30 applic UNSCH X1 PRN TOPICAL WOUND CARE; Start 08/07/17 at 13:30; Stop 08/09/17 at 13:29; Status DC Povidone Iodine (Betadine 5% Antisepsis Kit) 1 applic DEAN PRN EACH NARE SEE LABEL COMMENTS; Start 08/07/17 at 03:45; Stop 08/10/17 at 03:44; Status DC Rivaroxaban (Xarelto) 10 mg DAILY PO Last administered on 08/12/17 09:04; Start 08/08/17 at 01:00 Senna/Docusate Sodium ([place]-Colace) 1 tab BID PO Last administered on 08/12/17at 09:04; Start 08/07/17 at 21:00 Sennosides (Senokot) 17.2 mg Q12H PRN PO Moderate constipation; Start 08/07/17 at 13:30 Sodium Chloride 1,000 ml @ 999 mls/hr BOLUS ONCE IV Last administered on 08/10at 16:33; Start 08/10/17 at 16:00; Stop 08/10/17 at 17:00; Status DC Sodium Chloride (NS Flush) 2 ml BID IV FLUSH Last administered on 08/12/17at 09: 08; Start 08/07/17 at 21:00 Tranexamic Acid 1000 mg/Sodium Chloride 110 ml @ 200 mls/hr UNSCH IV Last administered on 08/07/17at 14:47; Start 08/07/17 at 14:00; Stop 08/07/17 at 20:00 ; Status DC Vancomycin HCl 1000 mg/Sodium Chloride 250 ml @ 250 mls/hr DEAN IV Last administered on 08/07/17at 10:10; Start 08/07/17 at 05:30; Stop 08/10/17 at 05:29 ; Status DC A/P Assessment and Plan Syncope -Most likely vasovagal. Labs reviewed negative. Troponin negative. EKG not impressive. Carotid ultrasound reviewed negative. Echo reviewed EF is 50-55%. Lightheadedness- resolved. -May be secondary to hypotension . received IV fluid. Left hip fracture -Dr. Nichole consulted appreciate with assistance. -s/p ORIF left periprosthetic proximal femur fracture on 08/[address] Nichole. -Per Ortho progress rehabilitation, toe-touch weightbearing, monitor postoperative anemia closely, daily dressing changes, aspirin 81mg BID for DVT prophylaxis, 20 days. Rehabilitation RN to [facility] postoperative day 8, 08/15/2017 Follow-up with Dr. Nichole in approximately 3 weeks Hypertension/status post gastric bypass surgery/OA -BP low at times- with lightheadedness- will hold lisinopril. DVT prophylaxis -aspirin Discharge Planning dc to rehab today. see med list. f/u; pcp and ortho. d/w the patient and RN. Ce Dior MD Aug 12, 2017 12:28
--- NOTE | 2017-08-12 12:32 | HHI.DS ---
Discharge Summary Admission Date Aug 06, 2017 at 16:30 Discharge Date: Aug 12, 2017 Admitting Diagnosis syncope, femur fracture (1) Syncope ICD Code: R55 - Syncope and collapse Diagnosis: Principal Status: Acute (2) Femur fracture, left ICD Code: S72.92XA - Unspecified fracture of left femur, initial encounter for closed fracture Diagnosis: Principal Status: Acute Procedures ORIF left periprosthetic proximal femur fracture Brief History - From Admission This is a 66-year-old female past medical history of gastric bypass surgery, hypertension who presented with a syncopal episode. Patient stated that she just moved here and was showing her friends a clubhouse. She states she is pointing to the board and felt very dizzy and passed out. Patient stated that her friend stated that she passed out for a few seconds. Denies any seizure- like activity or incontinence. Patient denies any chest pain, palpitation, or shortness of breathing during this episode. She stated that she ate throughout the day but may have been dehydrated. Patient stated and october in November she did have dizziness in which her PCP decrease her blood pressure medication. Patient described the dizziness more as lightheadedness as wanting to pass out. She is asymptomatic at the moment. Patient denies any focal neurological deficits, visual changes, or headache. She does admit to left hip pain. She also stated that left hip does not move much because of pain and now feels pins and needles. All other review systems reviewed and negative. CBC/BMP: 08/10/17 0934 Significant Findings Laboratory Tests Test 08/10/17 09:34 Hemoglobin 10.0 GM/DL (11.6-15.3) Hematocrit 28.6 % (35.0-46.0) Imaging Last Impressions Femur X-Ray 08/07/17 0000 Signed Impressions: Service Date/Time: Monday, August 07, 2017 12:37 - CONCLUSION: Successful ORIF Aaron Soliman MD Head CT 08/06/17 1423 Signed Impressions: Service Date/Time: Sunday, August 06, 2017 15:23 - CONCLUSION: Normal examination for a patient of this age. Jean-Claude Pineda MD Chest X-Ray 08/06/17 1423 Signed Impressions: Service Date/Time: Sunday, August 06, 2017 15:03 - CONCLUSION: No acute disease. Jean-Claude Pineda MD Cervical Spine CT 08/06/17 1423 Signed Impressions: Service Date/Time: Sunday, August 06, 2017 15:23 - CONCLUSION: 1. No acute bony fracture. 2. Primary degenerative changes, disc degeneration disc space narrowing from C4-C7. 3. Bilateral facet arthritis at multiple levels. Jean-Claude Pineda MD Pelvis X-Ray 08/06/17 0000 Signed Impressions: Service Date/Time: Sunday, August 06, 2017 14:56 - CONCLUSION: No acute fracture or joint dislocation involving the pelvis. Jean-Claude Pineda MD Carotid Artery Ultrasound 08/06/17 0000 Signed Impressions: Service Date/Time: Sunday, August 06, 2017 18:47 - CONCLUSION: 1. No significant atherosclerotic disease or stenosis is identified within either internal carotid artery. 2. There is antegrade flow in both vertebral arteries. Aaron Cardenas MD PE at Discharge GENERAL: This is a well-nourished, well-developed patient, in no apparent distress. CARDIOVASCULAR: Regular rate and regular rhythm without murmurs, gallops, or rubs. RESPIRATORY: Clear to auscultation. Breath sounds equal bilaterally. No wheezes , rales, or rhonchi. GASTROINTESTINAL: Abdomen soft, non-tender, nondistended. Normal, active bowel sounds MUSCULOSKELETAL: Extremities without clubbing, cyanosis, or edema. NEURO: Alert & Oriented x4 to person, place, time, situation. Moves all ext x4 Hospital Course Syncope -Most likely vasovagal. Labs reviewed negative. Troponin negative. EKG not impressive. Carotid ultrasound reviewed negative. Echo reviewed EF is 50-55%. Lightheadedness- resolved. -May be secondary to hypotension . received IV fluid. Left hip fracture -Dr. Nichole consulted appreciate with assistance. -s/p ORIF left periprosthetic proximal femur fracture on 08/[address] Nichole. -Per Ortho progress rehabilitation, toe-touch weightbearing, monitor postoperative anemia closely, daily dressing changes, aspirin 81mg BID for DVT prophylaxis, 20 days. Rehabilitation RN to [facility] postoperative day 8, 08/15/2017 Follow-up with Dr. Nichole in approximately 3 weeks Hypertension/status post gastric bypass surgery/OA -BP low at times- with lightheadedness- will hold lisinopril. DVT prophylaxis -aspirin Pt Condition on Discharge: Fair Discharge Disposition: Discharge to SNF Discharge Time: <= 30 minutes Discharge Instructions DIET: Follow Instructions for: Heart Healthy Diet Activities you can perform: Toe Touch Weight Bearing Activities to Avoid: Lifting/Bending Ce Dior MD Aug 12, 2017 12:31
[2017-08-12] MEDS ORDERED: ASPI-516 CHEW (12:35)
== END 2017-08-12 16:52 | DRG 481 ==
LOC: NEPC 14:12 → NEDA 16:30 → N06A 17:54 → UNDODISIN 18:01
PROVIDERS: ADMIT Internal Medicine; ATTEND Internal Medicine
PROC: 0QS704Z Reposition Left Upper Femur with Internal Fixation Device, Open Approach (ICD-10-PCS; principal; 2017-08-07 09:42)
DX: S72.002A Fracture of unspecified part of neck of left femur, initial encounter for closed fracture (principal); M97.02XA Periprosthetic fracture around internal prosthetic left hip joint, initial encounter; I10 Essential (primary) hypertension; R55 Syncope and collapse; M79.605 Pain in left leg; Z98.84 Bariatric surgery status; G47.30 Sleep apnea, unspecified; E07.9 Disorder of thyroid, unspecified; Z96.653 Presence of artificial knee joint, bilateral; Z96.643 Presence of artificial hip joint, bilateral; W18.39XA Other fall on same level, initial encounter; Y93.89 Activity, other specified; Y92.009 Unspecified place in unspecified non-institutional (private) residence as the place of occurrence of the external cause; Z96.612 Presence of left artificial shoulder joint; M19.90 Unspecified osteoarthritis, unspecified site; Z90.710 Acquired absence of both cervix and uterus; I95.2 Hypotension due to drugs; T40.2X5A Adverse effect of other opioids, initial encounter; Y92.239 Unspecified place in hospital as the place of occurrence of the external cause; D64.9 Anemia, unspecified
CPT/HCPCS: 70450; 71045; 72125; 72170; 73552; 76000; 80053; 81001; 82550; 82948; 84484; 85014; 85018; 85025; 85610; 85730; 86850; 86900; 86901; 86920; 93005; 93306; 93880; 94150; 96360; 96361; C1713; J0131; J0690; J1100; J1580; J2250; J2270; J2370; J2405; J3010; J3370; J7030; J7040; J7050; J7120